=== PATIENT | male | born 1955 | race Caucasian/White ===

== ENCOUNTER 2021-06-18 21:09 | Inpatient (IN) | payer OTHER ==
[~2021-06-18] VITALS: Ht 172.7 cm; Wt 89.9 kg
[~2021-06-18 21:09] MED LIST: BUDE10.22 IH; CHOL10003 PO; DEXT15DR5 EACHEYE; DOXE50CA PO; FENT1PAT15 TP; LEVO50TA5 PO; LISI-130 PO; LORA0.5T PO; MORP15TA PO; NAPR-677 PO; NICO1PAT25 TP; QUET300T5 PO; SERT100T PO; TEST5GEL TP
--- NOTE | 2021-06-18 21:20 | ED.ADGEN ---
General Adult EDM: Chief Complaint: HIP PAIN HPI: HPI: Patient is a 65 year old male coming in via EMS after a fall and left hip pain. Patient fell approximately 7 to 8 hours prior to arrival. Patient states he tripped over his walker was unable to get off the floor, has been lying on the floor since. Patient denies other injuries, has a history of bilateral hip replacements. Patient states he could not get up but can reach a bottle from and is currently intoxicated. History of hypertension, dyslipidemia, and "heart disease". Review of Systems: Review of Systems: All other systems within normal limits except for as noted in the HPI Current Medications: Current Medications Medications (Trade) Dose Ordered Sig/Santhosh Start Time Stop Time Status Last Admin Dose Admin Fentanyl Citrate (Fentanyl 2ml Vial) 75 mcg 1X ONCE 06/18/21 22:30 06/18/21 22:31 DC Sodium Chloride 1,000 ml @ 1,000 mls/hr 1X ONCE 06/18/21 22:30 06/18/21 23:29 Allergies: Allergies: Allergies Coded Allergies Type Severity Reaction Last Updated Verified No Known Drug Allergies 06/18/21 No Physical Exam: PE: Constitutional: Well developed, well nourished, no acute distress, non-toxic appearance. [] HENT: Normocephalic, atraumatic, bilateral external ears normal, nose normal. [] Eyes: PERRLA, conjunctiva normal, no discharge. [] Neck: No rigidity, supple, no stridor. [] Cardiovascular: Regular rate and rhythm, brisk cap refill [] Lungs & Thorax: Non labored symmetric respirations, no tachypnea or respiratory distress [] Abdomen: Soft, nondistended. Skin: Warm, dry, no erythema, no rash. [] Back: Unremarkable Extremities: No deformities, range of motion grossly intact, no lower extremity edema. Left lower extremity shortened externally rotated, sensation intact, no tenderness over foot or lower leg, tenderness from left hip to mid femur. [] Neurologic: Alert and oriented X 3, no focal deficits noted. [] Psychologic: Affect normal, judgement normal, mood normal. [] Current Patient Data: Labs: Laboratory Tests Test 06/18/21 22:15 White Blood Count 10.4 x10^3/uL (4.0-11.0) Red Blood Count 3.83 x10^6/uL (4.30-5.70) L Hemoglobin 12.2 g/dL (13.0-17.5) L Hematocrit 35.4 % (39.0-53.0) L Mean Corpuscular Volume 93 fL (79-100) Mean Corpuscular Hemoglobin 32 pg (25-35) Mean Corpuscular Hemoglobin Concent 34 g/dL (31-37) Red Cell Distribution Width 15.2 % (11.5-14.5) H Platelet Count 145 x10^3/uL (140-400) Neutrophils (%) (Auto) 75 % (31-73) H Lymphocytes (%) (Auto) 17 % (24-48) L Monocytes (%) (Auto) 7 % (0-9) Eosinophils (%) (Auto) 1 % (0-3) Basophils (%) (Auto) 1 % (0-3) Neutrophils # (Auto) 7.8 x10^3/uL (1.8-7.7) H Lymphocytes # (Auto) 1.7 x10^3/uL (1.0-4.8) Monocytes # (Auto) 0.7 x10^3/uL (0.0-1.1) Eosinophils # (Auto) 0.1 x10^3/uL (0.0-0.7) Basophils # (Auto) 0.1 x10^3/uL (0.0-0.2) Sodium Level 142 mmol/L (136-145) Potassium Level 3.5 mmol/L (3.5-5.1) Chloride Level 103 mmol/L (98-107) Carbon Dioxide Level 24 mmol/L (21-32) Anion Gap 15 (6-14) H Blood Urea Nitrogen 8 mg/dL (8-26) Creatinine 0.8 mg/dL (0.7-1.3) Estimated GFR (Cockcroft-Gault) 96.4 BUN/Creatinine Ratio 10 (6-20) Glucose Level 110 mg/dL (70-99) H Lactic Acid Level 2.7 mmol/L (0.4-2.0) H Calcium Level 8.6 mg/dL (8.5-10.1) Phosphorus Level Pending Magnesium Level Pending Total Bilirubin Pending Aspartate Amino Transferase (AST) Pending Alanine Aminotransferase (ALT) Pending Alkaline Phosphatase Pending Myoglobin Pending Troponin I Quantitative < 0.017 ng/mL (0.000-0.055) Total Protein Pending Albumin Pending Albumin/Globulin Ratio Pending Ethyl Alcohol Level 218 mg/dL (0-10) H Laboratory Tests 06/18/21 22:15 Laboratory Tests 06/18/21 22:15 Vital Signs: Vital Signs Date Time Temp Pulse Resp B/P (MAP) Pulse Ox O2 Delivery O2 Flow Rate FiO2 06/18/21 21:10 98.5 107 20 153/75 95 Room Air 98.5 EKG: EKG: [] Heart Score: C/O Chest Pain: No Risk Factors: Risk Factors: DM, Current or recent (<one month) smoker, HTN, HLP, family history of CAD, obesity. Risk Scores: Score 0 - 3: 2.5% MACE over next 6 weeks - Discharge Home Score 4 - 6: 20.3% MACE over next 6 weeks - Admit for Clinical Observation Score 7 - 10: 72.7% MACE over next 6 weeks - Early Invasive Strategies Radiology/Procedures: Radiology/Procedures: [place] [address] IMAGING REPORT Signed PATIENT: YAMILET VENCES ACCOUNT: [id number] : 1955 LOCATION: ER AGE: 65 SEX: M EXAM STATUS: REG ER ORD. PHYSICIAN: LINDA SAM MD REASON: fall, broken femur PROCEDURE: CHEST AP ONLY Exam: Chest one view INDICATION: Fall, broken femur TECHNIQUE: Frontal view of the chest Comparisons: None FINDINGS: The cardiomediastinal silhouette and pulmonary vessels are within normal limits. The lung and pleural spaces are clear. IMPRESSION: No acute cardiopulmonary process. Electronically signed by: Kirk Forrest MD (06/18/2021 10:50 PM) [facility] DICTATED and SIGNED BY: KIRK FORREST MD DATE: 06/18/21 [id number] [][address] [address] IMAGING REPORT Signed PATIENT: YAMILET VENCES ACCOUNT: [id number] : 1955 LOCATION: ER AGE: 65 SEX: M EXAM STATUS: REG ER ORD. PHYSICIAN: LINDA SAM MD REASON: fall, pain PROCEDURE: FEMUR LEFT Exam: Left femur 2 views. Left pelvis INDICATION: Fall, pain TECHNIQUE: Frontal and lateral views the left femur. Frontal and frog-leg lateral views of the left hip Comparisons: None FINDINGS: Left hip arthroplasty changes noted. Diffuse osteopenia. Soft tissues are unremarkable. Obliquely oriented fracture through the femur. Fracture is shortened and placed. IMPRESSION: 1. Comminuted obliquely oriented fracture to the left femur. 2. No acute osseous abnormality at the hip. Electronically signed by: Kirk Forrest MD (06/18/2021 10:49 PM) [facility] DICTATED and SIGNED BY: KIRK FORREST MD DATE: 06/18/21 [id number] Course & Med Decision Making: Course & Med Decision Making Pertinent Labs and Imaging studies reviewed. (See chart for details) Patient's pain controlled, discussed with Dr. Rojas, will admit for oper ative fixation [] Dragon Disclaimer: Caroline Disclaimer: This electronic medical record was generated, in whole or in part, using a voice recognition dictation system. Departure Departure Impression: Primary Impression: Closed left femoral fracture Disposition: 01 HOME / SELF CARE / HOMELESS Admitting Physician: GABBY Condition: STABLE LINDA SAM MD Jun 18, 2021 21:20
[2021-06-18 22:25] LABS: BASO # 0.1 x10^3/uL (0.0-0.2); BASO % 1 % (0-3); EOS # 0.1 x10^3/uL (0.0-0.7); EOS % 1 % (0-3); HEMATOCRIT 35.4 % (39.0-53.0); HEMOGLOBIN 12.2 g/dL (13.0-17.5); LYMPH # 1.7 x10^3/uL (1.0-4.8); LYMPH % 17 % (24-48); MEAN CORPUSCULAR HEMOGLOBIN 32 pg (25-35); MEAN CORPUSCULAR HGB CONC 34 g/dL (31-37); MEAN CORPUSCULAR VOLUME 93 fL (79-100); MONO # 0.7 x10^3/uL (0.0-1.1); MONO % 7 % (0-9); NEUT # 7.8 x10^3/uL (1.8-7.7); NEUT % 75 % (31-73); PLATELET COUNT 145 x10^3/uL (140-400); RED BLOOD COUNT 3.83 x10^6/uL (4.30-5.70); RED CELL DISTRIBUTION WIDTH 15.2 % (11.5-14.5); WHITE BLOOD COUNT 10.4 x10^3/uL (4.0-11.0)
[2021-06-18] MEDS ORDERED: IV NORMAL SALINE 1000ML BAG 1,000 ML IV ONE (22:30)
[2021-06-18] MEDS ORDERED: fentaNYL PF VIAL 100 MCG/2 ML VIAL IVP ONE (22:30)
[2021-06-18 22:39] LABS: CALCIUM 8.6 mg/dL (8.5-10.1); CREATININE 0.8 mg/dL (0.7-1.3); GFR 96.4; POTASSIUM 3.5 mmol/L (3.5-5.1)
[2021-06-18 22:51] LABS: ALBUMIN 3.5 g/dL (3.4-5.0); MAGNESIUM 1.7 mg/dL (1.8-2.4); PHOSPHORUS 3.7 mg/dL (2.6-4.7); TOTAL BILIRUBIN 0.7 mg/dL (0.2-1.0); TOTAL PROTEIN 7.1 g/dL (6.4-8.2)
--- NOTE | 2021-06-18 22:51 | RAD ---
Exam: Left femur 2 views. Left pelvis INDICATION: Fall, pain TECHNIQUE: Frontal and lateral views the left femur. Frontal and frog-leg lateral views of the left h ip Comparisons: None FINDINGS: Left hip arthroplasty changes noted. Diffuse osteopenia. Soft tissues are unremarkable. Obliquely oriented fracture through the femur. Fracture is shortened and placed. IMPRESSION: 1. Comminuted obliquely oriented fracture to the left femur. 2. No acute osseous abnormality at the hip. Electronically signed by: Kirk Brooks MD (06/18/2021 10:49 PM) [facility]
--- NOTE | 2021-06-18 22:52 | RAD ---
Exam: Chest one view INDICATION: Fall, broken femur TECHNIQUE: Frontal view of the chest Comparisons: None FINDINGS: The cardiomediastinal silhouette and pulmonary vessels are within normal limits. The lung and pleural spaces are clear. IMPRESSION: No acute cardiopulmonary process. Electronically signed by: Kirk Brooks MD (06/18/2021 10:50 PM) [facility]
[2021-06-18] MEDS ORDERED: ONDANSETRON PF 4 MG/2 ML VIAL. IV PRN (23:00)
[2021-06-18] MEDS ORDERED: ACETAMINOPHEN 325 MG TABLET. PO PRN (23:00)
[2021-06-18] MEDS: IV NORMAL SALINE 1000ML BAG 1,000 ML IV SCH (23:43)
[2021-06-19] VITALS (7 sets, daily range): BP systolic 124–153; BP diastolic 64–100
[2021-06-19] MEDS: MORPHINE SULFATE 4 MG/ML INJ. IV PRN ×5 (00:51→17:07)
[2021-06-19] MEDS ORDERED: LORA-434 PO (01:34)
[2021-06-19] MEDS ORDERED: ALBU2.5V8 IH (01:35)
[2021-06-19 07:36] LABS: BASO % 1 % (0-3); EOS # 0.1 x10^3/uL (0.0-0.7); EOS % 1 % (0-3); HEMATOCRIT 34.8 % (39.0-53.0); HEMOGLOBIN 11.8 g/dL (13.0-17.5); LYMPH % 23 % (24-48); MEAN CORPUSCULAR HEMOGLOBIN 32 pg (25-35); MEAN CORPUSCULAR HGB CONC 34 g/dL (31-37); MEAN CORPUSCULAR VOLUME 94 fL (79-100); MONO # 0.6 x10^3/uL (0.0-1.1); MONO % 7 % (0-9); NEUT % 69 % (31-73); PLATELET COUNT 111 x10^3/uL (140-400); RED CELL DISTRIBUTION WIDTH 15.5 % (11.5-14.5); WHITE BLOOD COUNT 8.7 x10^3/uL (4.0-11.0)
[2021-06-19 07:53] LABS: ALBUMIN 3.1 g/dL (3.4-5.0); ALBUMIN/GLOBULIN RATIO 0.9 (1.0-1.7); CALCIUM 8.3 mg/dL (8.5-10.1); CREATININE 0.7 mg/dL (0.7-1.3); GFR 112.5; POTASSIUM 3.7 mmol/L (3.5-5.1); TOTAL BILIRUBIN 0.6 mg/dL (0.2-1.0); TOTAL PROTEIN 6.5 g/dL (6.4-8.2)
[2021-06-19] MEDS: IV NORMAL SALINE 1000ML BAG 1,000 ML IV SCH ×2 (09:53→22:49)
--- NOTE | 2021-06-19 09:59 | NUR ---
SS following for discharge planning. SS reviewed pt chart and discussed with pt RN. Pt is from home and is currently on room air. COVID19 negative. Pt has left femur fracture. Ortho consulted. PT/OT orders needed for assessment and recommendations. ETOH. PAT team referral made for assessment and recommendations. SS will continue to follow for discharge planning.
[2021-06-19] MEDS ORDERED: IV RINGERS,LACTATED 1000ML 1,000 ML IV SCH ×2 (10:15→21:15)
[2021-06-19] MEDS ORDERED: fentaNYL PF VIAL 100 MCG/2 ML VIAL IVP PRN ×4 (10:15→21:15)
[2021-06-19] MEDS ORDERED: HYDROmorphone 2 MG/ML VIAL IVP PRN (10:15)
[2021-06-19] MEDS ORDERED: PROCHLORPERAZINE 10 MG/2 ML VIAL. IVP PRN (10:15)
[2021-06-19] MEDS ORDERED: MORPHINE SULFATE 2 MG/ML INJ. IVP PRN ×2 (10:15→21:15)
[2021-06-19] MEDS ORDERED: ALBUTEROL SULFATE 2.5 MG/3 ML NEBU. NEB PRN (11:45)
[2021-06-19] MEDS ORDERED: ASPI-886 PO (11:55)
[2021-06-19] MEDS ORDERED: CARB15DR65 EACHEYE (11:55)
[2021-06-19] MEDS ORDERED: CAPS42.514 TP (11:55)
[2021-06-19] MEDS ORDERED: NAPR-514 PO (11:55)
[2021-06-19] MEDS ORDERED: OMEP20CA16 PO (11:55)
[2021-06-19] MEDS ORDERED: SERT100T PO (11:55)
[2021-06-19] MEDS ORDERED: LEVO50TA5 PO (11:55)
[2021-06-19] MEDS ORDERED: QUET300T5 PO (11:55)
[2021-06-19] MEDS ORDERED: CHOL10004 PO (11:55)
[2021-06-19] MEDS: oxyCODONE/APAP 7.5/325 1 TAB TABLET PO PRN (12:29)
--- NOTE | 2021-06-19 12:59 | HP ---
ADMIT DATE: 06/19/2021 CHIEF COMPLAINT: Fall with left femur fracture. 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 Basically, he presented with a fall. He has got a left femur fracture, has associated pain rated at 9/10, worse with moving, better with sitting still. I discussed the case with ER physician. We are admitting the patient. He is possibly going to surgery today or tomorrow. PAST MEDICAL HISTORY: Previous alcohol issues, but he states he drinks socially now; hypertension, chronic pain, arthritis, polypharmacy asthma, arthritis, osteoporosis, depression, anxiety, GERD, hypothyroidism. ALLERGIES: None. FAMILY HISTORY: Hypothyroidism. SOCIAL HISTORY: He used to play [employer] professionally for many years. He drinks socially, although used to drink heavy back in the day. MEDICATIONS: Reviewed. He is on albuterol, aspirin, naproxen, Zoloft, Seroquel, Ativan, vitamins, omeprazole, Synthroid, capsaicin and vitamin D. REVIEW OF SYSTEMS: GENERAL: No history of weight change, weakness or fevers. SKIN: No bruising, hair changes or rashes. EYES: No blurred, double or loss of vision. NOSE AND THROAT: No history of nosebleeds, hoarseness or sore throat. HEART: No history of palpitations, chest pain or shortness of breath on exertion. LUNGS: Denies cough, hemoptysis, wheezing or shortness of breath. GASTROINTESTINAL: Denies changes in appetite, nausea, vomiting, diarrhea or constipation. GENITOURINARY: No history of frequency, urgency, hesitancy or nocturia. NEUROLOGIC: Denies history of numbness, tingling, tremor or weakness. PSYCHIATRIC: No history of panic, anxiety or depression. ENDOCRINE: No history of heat or cold intolerance, polyuria or polydipsia. EXTREMITIES: He complains of left leg pain. PHYSICAL EXAMINATION: VITALS: Within normal limits and are stable. GENERAL: No apparent distress. Alert and oriented. HEENT: Normal cephalic atraumatic, external auditory canals are patent. EYES: Extraocular muscles are intact, pupils are equally round and reactive to light and accommodation. MUSCULOSKELETAL: Well developed, well nourished, good range of motion. ENDOCRINE: No thyromegaly was palpated. LYMPHATICS: No cervical chain or axillary nodes were noted. HEMATOPOIETIC: No bruising. NECK: Supple, no JVD, no thyromegaly was noted. LUNGS: Clear to auscultation in all lung neely without rhonchi or wheezing. HEART: RRR, S1, S2 present. Peripheral pulses intact, no obvious murmurs were noted. ABDOMEN: Soft, nontender. Positive bowel sounds no organomegaly, normal bowel sounds. EXTREMITIES: Left leg is extremely rotated. NEUROLOGIC: Normal speech, normal tone. A and O x 3, moves all extremities, no obvious focal deficits. PSYCHIATRIC: Normal affect, normal mood. Stable. SKIN: No ulcerations or rashes, good skin turgor, no jaundice. VASCULAR: Good capillary refill, neurovascular bundle appears to be intact. LABORATORY DATA: White count is 8, hemoglobin 11.8, platelets 111. Electrolytes are normal. Drug screen shows an alcohol level of 218. COVID testing is negative. ASSESSMENT AND PLAN: Fall with left femur fracture in a middle-aged male who states he quit drinking, but his alcohol level was high. I suspect he is still drinking. The patient has been admitted. We are giving him p.r.n. pain meds, IV fluids, home meds. DVT prophylaxis. Full code. Consult Orthopedics. We are going to Surgery either today or tomorrow. Postoperatively, he is going to need a couple of days of physical therapy here and then he will go to care home. EDWIN DR: Nay TID: [id number]
[2021-06-19] MEDS: POLYVINYL ALCOHOL 1.4% OPHTH SOLUTION 15ML BOTTLE. OU SCH ×3 (13:00→21:00)
--- NOTE | 2021-06-19 13:39 | EKG ---
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
[2021-06-19] MEDS: CAPSAICIN 0.025% TOPICAL CREAM 60GM TUBE. TP SCH ×2 (14:00→21:00)
--- NOTE | 2021-06-19 14:56 | NUR ---
assumed care at 1300.. he is going to surgery this evening for a broken femur. He fell and was on floor for a couple of hours. obtained consents for surgery, blood, hiv and anesthesia. mrsa bath given. he has glasses but did not bring. he has an upper denture. tapia to dd; patent with angy urine. wallet with his va identification. miriam npo at this time
[2021-06-19] MEDS ORDERED: PROPOFOL 10 MG/ML (20ML) VIAL. IV ONE (15:16)
[2021-06-19] MEDS ORDERED: PHENYLEPHRINE in 0.9% NACL PF 1 MG/10 ML SYRINGE. IV ONE (15:17)
[2021-06-19] MEDS ORDERED: ROCURONIUM 50 MG/5 ML VIAL. ONE (15:17)
[2021-06-19] MEDS ORDERED: DEXAMETHASONE SOD PHOS 4 MG/ML VIAL ONE (15:17)
[2021-06-19] MEDS ORDERED: LIDOCAINE 2% PF 5 ML VIAL. ONE (15:17)
[2021-06-19] MEDS ORDERED: ONDANSETRON PF 4 MG/2 ML VIAL. ONE (15:17)
[2021-06-19] MEDS ORDERED: BUPIVACAINE-EPI 0.25%-1:200000 MPF 30 ML VIAL. ONE (17:44)
[2021-06-19] MEDS ORDERED: fentaNYL PF VIAL 100 MCG/2 ML VIAL ONE ×2 (18:19→21:14)
--- NOTE | 2021-06-19 18:30 | NUR ---
transferred to surgery for an orif left femur. security here to take wallet. upper denture placed in container with name. clothes sent to surgery. will be transferring to the 414 post surgery. report called to Josemanuel
[2021-06-19] MEDS ORDERED: KETAMINE HCL IN NACL, ISO-OSM 50 MG/5 ML SYRINGE ONE (18:44)
[2021-06-19] MEDS ORDERED: TRANEXAMIC ACID in NS IVPB 50 ML ONE (19:02)
[2021-06-19] MEDS ORDERED: ALBUMIN HUMAN 5% 0 ML IV ONE (19:50)
[2021-06-19] MEDS ORDERED: ALBUMIN HUMAN 5% 500 ML IV ONE ×2 (19:56→19:57)
[2021-06-19] MEDS ORDERED: ePHEDrine PF IN SALINE 50 MG/10 ML SYRINGE. IV ONE (20:25)
[2021-06-19] MEDS ORDERED: SEVOFLURANE > 120 MINUTES. IH ONE (20:26)
[2021-06-19] MEDS ORDERED: HYDROcodone/APAP 7.5/325MG 1 TAB TABLET PO PRN (20:45)
[2021-06-19] MEDS ORDERED: ONDANSETRON PF 4 MG/2 ML VIAL. IVP PRN (20:45)
[2021-06-19] MEDS ORDERED: DEXTROSE 50% 25 GM / 50ML DISP.SYRIN. IV PRN (20:45)
[2021-06-19] MEDS ORDERED: POLYETHYLENE GLYCOL 3350 17 GM PACKET. PO PRN (20:45)
[2021-06-19] MEDS: NAPROXEN 500 MG TABLET PO SCH (21:00)
[2021-06-19] MEDS: QUEtiapine 100 MG TABLET. PO SCH (21:00)
[2021-06-19] MEDS: fentaNYL PF VIAL 100 MCG/2 ML VIAL IVP PRN ×2 (21:19→21:27)
[2021-06-19] MEDS ORDERED: HYDROmorphone 2 MG/ML VIAL ONE (21:42)
[2021-06-19] MEDS: HYDROmorphone 2 MG/ML VIAL IVP PRN ×3 (21:50→22:33)
--- NOTE | 2021-06-19 22:13 | RAD ---
Left femur AP and lateral views: Reason for examination: Postop for fracture. There has been open reduction and internal fixation of the oblique fracture of the distal femur with a plate and multiple screws present laterally. There is good anatomic alignment following the procedu re. Left total hip prosthesis is present. There is some soft tissue edema and air present laterally w hich is probably related to the surgery. Multiple surgical alba are present posterior laterally in the thigh. IMPRESSION: Postop open reduction and internal fixation of the oblique fracture of the distal femoral shaft with good anatomic alignment. Electronically signed by: Hannah Nixon MD (06/19/2021 10:11 PM) [facility]
[2021-06-20] VITALS (8 sets, daily range): BP systolic 96–144; BP diastolic 38–83
[2021-06-20] MEDS: oxyCODONE/APAP 7.5/325 1 TAB TABLET PO PRN ×2 (01:04→05:38)
[2021-06-20] MEDS: HYDROmorphone 2 MG/ML VIAL IVP PRN (01:58)
[2021-06-20] MEDS: fentaNYL PF VIAL 100 MCG/2 ML VIAL IVP PRN (01:59)
[2021-06-20] MEDS: LEVOTHYROXINE 50 MCG TABLET PO SCH (05:36)
[2021-06-20] MEDS ORDERED: MAGNESIUM HYDROXIDE 2,400 MG/30 ML ORAL.SUSP. PO PRN (06:00)
[2021-06-20] MEDS: MORPHINE SULFATE 4 MG/ML INJ. IVP PRN ×2 (06:22→16:34)
[2021-06-20] MEDS: NAPROXEN 500 MG TABLET PO SCH ×2 (08:17→19:56)
[2021-06-20] MEDS: THIAMINE 100 MG TABLET. PO SCH (08:17)
[2021-06-20] MEDS: PANTOPRAZOLE 40 MG TABLET.DR. PO SCH (08:18)
[2021-06-20] MEDS: ASPIRIN ENTERIC COATED 81 MG TABLET.DR. PO SCH (08:18)
[2021-06-20] MEDS: CHOLECALCIFEROL (VITAMIN D3) 1,000 UNIT TABLET PO SCH (08:18)
[2021-06-20] MEDS: SENNOSIDES/DOCUSATE 8.6/50MG TABLET. PO SCH (08:18)
[2021-06-20] MEDS: SERTRALINE 50 MG TABLET. PO SCH (08:18)
[2021-06-20] MEDS: oxyCODONE IR 5 MG TABLET PO PRN ×3 (08:19→14:18)
[2021-06-20] MEDS: FOLIC ACID 1 MG TABLET. PO SCH (08:19)
[2021-06-20] MEDS: CAPSAICIN 0.025% TOPICAL CREAM 60GM TUBE. TP SCH ×3 (09:00→19:56)
[2021-06-20] MEDS: HYDROcodone/APAP 10/325 1 TAB TABLET PO PRN ×2 (10:53→16:29)
--- NOTE | 2021-06-20 11:12 | PDOC ---
[facility] PROGRESS NOTE Date of Service DOS: DATE: 06/20/21 TIME: 11:07 Chief Complaint Chief Complaint Fall with left femur fracture status post left ORIF with orthopedics 06/19/2021 EtOH use Lactic acidemia Moderate protein malnutrition Obesity class I Continue with IV n.p.o. 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 Basically, he presented with a fall. He has got a left femur fracture, has associated pain rated at 9/10, worse with moving, better with sitting still. I discussed the case with ER physician. We are admitting the patient. Vitals/I&O Vitals/I&O: Vital Signs Date Time Temp Pulse Resp B/P (MAP) Pulse Ox O2 Delivery O2 Flow Rate FiO2 06/20/21 11:00 98.0 113 16 144/73 (96) 97 Room Air 98.0 06/20/21 01:04 5.0 I & O 06/19/21 06/19/21 06/20/21 14:59 22:59 06:59 Intake Total 1100 ml 2600 ml 480 ml Output Total 700 ml Balance 1100 ml 1900 ml 480 ml Physical Exam General: Alert, Oriented X3, Cooperative, mild distress Heart: No murmurs Lungs: Clear Abdomen: Normal bowel sounds Extremities: No clubbing, No cyanosis Skin: No rashes, Other (Surgical incision clear dry and intact) Assessment and Plan Assessmemt and Plan Problems Medical Problems: (1) Closed left femoral fracture Status: Acute Comment Review of Relevant I have reviewed the following items michael (where applicable) has been applied. Medications: Current Medications Medications (Trade) Dose Ordered Sig/Santhosh Route PRN Reason Start Time Stop Time Status Last Admin Dose Admin Aspirin (Ecotrin) 81 mg DAILY PO 06/20/21 09:00 06/20/21 08:18 Vitamin D (Vitamin D3) 1,000 unit DAILY PO 06/20/21 09:00 06/20/21 08:18 Levothyroxine Sodium (Synthroid) 50 mcg DAILY06 PO 06/20/21 06:00 06/20/21 05:36 Lorazepam (Ativan) 1 mg BID PO 06/19/21 21:00 06/20/21 08:18 Naproxen (Naprosyn) 500 mg BID PO 06/19/21 21:00 06/20/21 08:17 Pantoprazole Sodium (Protonix) 40 mg DAILYAC PO 06/20/21 07:30 06/20/21 08:18 Sertraline HCl (Zoloft) 200 mg DAILY PO 06/20/21 09:00 06/20/21 08:18 Oxycodone/ Acetaminophen (Percocet 7.5/ 325) 1 tab PRN Q4HRS PRN PO SEVERE PAIN, 2ND CHOICE 06/19/21 12:15 06/20/21 05:38 Lorazepam (Ativan) 1 mg 1X ONCE PO 06/19/21 12:30 06/19/21 12:31 DC 06/19/21 12:28 Thiamine Mononitrate (Vitamin B-1) 100 mg DAILY PO 06/20/21 09:00 06/20/21 08:17 Folic Acid (Folic Acid) 1 mg DAILY PO 06/20/21 09:00 06/20/21 08:19 Oxycodone HCl (Roxicodone) 5 mg PRN Q3HRS PRN PO MODERATE PAIN 4-6 06/19/21 20:45 06/20/21 08:19 Senna/Docusate Sodium (Senna Plus) 1 tab DAILY PO 06/20/21 09:00 06/20/21 08:18 Ondansetron HCl (Zofran) 4 mg PRN Q4HRS PRN IVP NAUSEA/VOMITING 06/19/21 20:45 06/20/21 06:17 Morphine Sulfate (Morphine Sulfate) 4 mg PRN Q2HR PRN IVP SEVERE PAIN 7-10 06/19/21 20:45 06/20/21 06:22 Cefazolin Sodium/ Dextrose 50 ml @ 100 mls/hr Q6H IV 06/20/21 00:00 06/20/21 12:29 06/20/21 05:36 Fentanyl Citrate (Fentanyl 2ml Vial) 50 mcg PRN Q5MIN PRN IVP MODERATE PAIN 4-6 06/19/21 21:15 06/20/21 03:00 DC 06/19/21 21:27 Hydromorphone HCl (Dilaudid) 0.5 mg PRN Q10MIN PRN IVP SEVERE PAIN 7-10, 2nd CHOICE 06/19/21 21:15 06/20/21 03:00 DC 06/19/21 22:33 Acetaminophen/ Hydrocodone Bitart (Lortab ) 1 tab PRN Q6HRS PRN PO SEVERE PAIN - 1ST CHOICE 06/20/21 10:00 06/20/21 10:53 Justifications for Admission Other Justification LORENA DOUGHERTY MD Jun 20, 2021 11:11
--- NOTE | 2021-06-20 11:28 | NUR ---
SW following. Discussed with RN, pt from home, room air, NPO, COVID-19 negative. Parker (AUBREY) saw pt yesterday, pt has a few glasses of rum a day, does not feel like he needs any help, denies any mental health needs. PT/OT ordered. Pt had surgery 06/19/21. SW will continue to follow.
[2021-06-20] MEDS: POLYVINYL ALCOHOL 1.4% OPHTH SOLUTION 15ML BOTTLE. OU SCH ×4 (12:51→19:59)
--- NOTE | 2021-06-20 15:38 | PDOC2 ---
CONSULT Date of Consult Date of Consult DATE: 06/19/21 TIME: 10:34 Reason for Consult Reason for Consult: Left femur periprosthetic fracture. Identification/Chief Complaint Chief Complaint Left femur periprosthetic fracture after ground-level fall. Source Source: Patient History of Present Illness Reason for Visit: Patient is a 65-year-old male, admitted through the emergency department after ground-level fall with left leg pain and deformity. Patient tripped while at home and was unable to bear weight or ambulate. He was unable to reach the telephone as well and laid on the floor for approximately 6 hours. It was then brought here for further follow-up. He denies any numbness or tingling currently. Admits to significant pain in his left leg with inability to move. He underwent total hip arthroplasty in the past without complication. Current Problem List Problem List Problems Medical Problems: (1) Closed left femoral fracture Status: Acute Current Medications Current Medications Current Medications Sodium Chloride 1,000 ml @ 1,000 mls/hr 1X ONCE IV Last administered on 06/18/21at 21:30; Start 06/18/21 at 22:30; Stop 06/18/21 at 23:29; Status DC Fentanyl Citrate (Fentanyl 2ml Vial) 75 mcg 1X ONCE IVP Last administered on 06/18/21at 23:46; Start 06/18/21 at 22:30; Stop 06/18/21 at 22:31; Status DC Ondansetron HCl (Zofran) 4 mg PRN Q8HRS PRN IV NAUSEA/VOMITING 1ST CHOICE Last administered on 06/19/21at 00:51; Start 06/18/21 at 23:00; Stop 06/19/21 at 21:00; Status DC Morphine Sulfate (Morphine Sulfate) 4 mg PRN Q2HR PRN IV SEVERE PAIN 7-10 Last administered on 06/19/21at 17:07; Start 06/18/21 at 23:00; Stop 06/19/21 at 21:03; Status DC Sodium Chloride 1,000 ml @ 75 mls/hr [id number] IV Last administered on 06/19/21at 22:49; Start 06/18/21 at 23:30; Stop 06/19/21 at 23:29; Status DC Acetaminophen (Tylenol) 650 mg PRN Q4HRS PRN PO FEVER > 100.3'F; Start 06/18/21 at 23:00; Stop 06/19/21 at 22:59; Status DC Fentanyl Citrate (Fentanyl 2ml Vial) 25 mcg PRN Q5MIN PRN IVP MILD PAIN 1-3; Start 06/19/21 at 10:15; Stop 06/19/21 at 19:00; Status DC Fentanyl Citrate (Fentanyl 2ml Vial) 50 mcg PRN Q5MIN PRN IVP MODERATE PAIN 4- 6; Start 06/19/21 at 10:15; Stop 06/19/21 at 19:00; Status DC Morphine Sulfate (Morphine Sulfate) 1 mg PRN Q10MIN PRN IVP SEVERE PAIN 7-10; Start 06/19/21 at 10:15; Stop 06/19/21 at 19:00; Status DC Ringer's Solution 1,000 ml @ 30 mls/hr Q24H IV ; Start 06/19/21 at 10:15; Stop 06/19/21 at 22:14; Status DC Hydromorphone HCl (Dilaudid) 0.5 mg PRN Q10MIN PRN IVP SEVERE PAIN 7-10, 2nd CHOICE; Start 06/19/21 at 10:15; Stop 06/19/21 at 19:00; Status DC Prochlorperazine Edisylate (Compazine) 5 mg PACU PRN PRN IVP NAUSEA, MRX1; Start 06/19/21 at 10:15; Stop 06/19/21 at 19:00; Status DC Aspirin (Ecotrin) 81 mg DAILY PO Last administered on 06/20/21at 08:18; Start 06/20/21 at 09:00 Vitamin D (Vitamin D3) 1,000 unit DAILY PO Last administered on 06/20/21at 08:18; Start 06/20/21 at 09:00 Levothyroxine Sodium (Synthroid) 50 mcg DAILY06 PO Last administered on 06/20/21at 05:36; Start 06/20/21 at 06:00 Lorazepam (Ativan) 1 mg BID PO Last administered on 06/20/21at 08:18; Start 06/19/21 at 21:00 Naproxen (Naprosyn) 500 mg BID PO Last administered on 06/20/21at 08:17; Start 06/19/21 at 21:00 Capsaicin (Zostrix) 1 enrrique TID TP ; Start 06/19/21 at 14:00 Glycerin/ Hypromellose/ Polyethylene (Artificial Tears) 1 drop QID OU Last administered on 06/20/21at 12:51; Start 06/19/21 at 13:00 Pantoprazole Sodium (Protonix) 40 mg DAILYAC PO Last administered on 06/20/21at 08:18; Start 06/20/21 at 07:30 Quetiapine Fumarate (SEROquel) 150 mg HS PO ; Start 06/19/21 at 21:00 Sertraline HCl (Zoloft) 200 mg DAILY PO Last administered on 06/20/21at 08:18; Start 06/20/21 at 09:00 Albuterol Sulfate (Ventolin Neb Soln) 2.5 mg PRN QID PRN NEB WHEEZING; Start 06/19/21 at 11:45 Oxycodone/ Acetaminophen (Percocet 7.5/ 325) 1 tab PRN Q4HRS PRN PO SEVERE PAIN, 2ND CHOICE Last administered on 06/20/21at 05:38; Start 06/19/21 at 12:15 Lorazepam (Ativan) 1 mg 1X ONCE PO Last administered on 06/19/21at 12:28; Start 06/19/21 at 12:30; Stop 06/19/21 at 12:31; Status DC Thiamine Mononitrate (Vitamin B-1) 100 mg DAILY PO Last administered on 06/20/21at 08:17; Start 06/20/21 at 09:00 Folic Acid (Folic Acid) 1 mg DAILY PO Last administered on 06/20/21at 08:19; Start 06/20/21 at 09:00 Propofol (Diprivan) 200 mg STK-MED ONCE IV ; Start 06/19/21 at 15:16; Stop 06/19/21 at 15:17; Status DC Lidocaine HCl (Lidocaine Pf 2% Vial) 5 ml STK-MED ONCE .ROUTE ; Start 06/19/21 a t 15:17; Stop 06/19/21 at 15:17; Status DC Dexamethasone Sodium Phosphate (Decadron) 4 mg STK-MED ONCE .ROUTE ; Start 06/19/21 at 15:17; Stop 06/19/21 at 15:17; Status DC Ondansetron HCl (Zofran) 4 mg STK-MED ONCE .ROUTE ; Start 06/19/21 at 15:17; Stop 06/19/21 at 15:17; Status DC Phenylephrine HCl (PHENYLEPHRINE in 0.9% NACL PF) 1 mg STK-MED ONCE IV ; Start 06/19/21 at 15:17; Stop 06/19/21 at 15:17; Status DC Rocuronium [place] (Zemuron) 50 mg STK-MED ONCE .ROUTE ; Start 06/19/21 at 15:17; Stop 06/19/21 at 15:17; Status DC Bupivacaine HCl/ Epinephrine Bitart (Sensorcaine-Epi 0.25%-1:[id number] Mpf) 30 ml STK-MED ONCE .ROUTE ; Start 06/19/21 at 17:44; Stop 06/19/21 at 17:44; Status DC Fentanyl Citrate (Fentanyl 2ml Vial) 100 mcg STK-MED ONCE .ROUTE ; Start 06/19/21 at 18:19; Stop 06/19/21 at 18:19; Status DC Cefazolin Sodium/ Dextrose 50 ml @ As Directed STK-MED ONCE IV ; Start 06/19/21 at 18:21; Stop 06/19/21 at 18:21; Status DC Ketamine HCl (Ketamine) 50 mg STK-MED ONCE .ROUTE ; Start 06/19/21 at 18:44; Stop 06/19/21 at 18:45; Status DC Tranexamic Acid 50 ml @ As Directed STK-MED ONCE .ROUTE ; Start 06/19/21 at 19:02; Stop 06/19/21 at 19:03; Status DC Albumin Human 0 ml @ As Directed STK-MED ONCE IV ; Start 06/19/21 at 19:50; Stop 06/19/21 at 19:50; Status DC Albumin Human 500 ml @ As Directed STK-MED ONCE IV ; Start 06/19/21 at 19:56; Stop 06/19/21 at 19:56; Status DC Albumin Human 500 ml @ As Directed STK-MED ONCE IV ; Start 06/19/21 at 19:57; Stop 06/19/21 at 19:57; Status DC Ephedrine Sulfate (ePHEDrine PF IN SALINE SYRINGE) 50 mg STK-MED ONCE IV ; Start 06/19/21 at 20:25; Stop 06/19/21 at 20:25; Status DC Sevoflurane (Ultane) 90 ml STK-MED ONCE IH ; Start 06/19/21 at 20:26; Stop 06/19/21 at 20:26; Status DC Oxycodone HCl (Roxicodone) 5 mg PRN Q3HRS PRN PO MODERATE PAIN 4-6 Last administered on 06/20/21at 14:18; Start 06/19/21 at 20:45 Fentanyl Citrate (Fentanyl 2ml Vial) 25 mcg PRN Q1HR PRN IVP SEVERE PAIN 7-10; Start 06/19/21 at 20:45 Senna/Docusate Sodium (Senna Plus) 1 tab DAILY PO Last administered on 06/20/21at 08:18; Start 06/20/21 at 09:00 Polyethylene Glycol (miraLAX PACKET) 17 gm PRN DAILY PRN PO CONSTIPATION; Start 06/19/21 at 20:45 Ondansetron HCl (Zofran) 4 mg PRN Q4HRS PRN IVP NAUSEA/VOMITING Last administered on 06/20/21at 06:17; Start 06/19/21 at 20:45 Enoxaparin Sodium (Lovenox 40mg Syringe) 40 mg DAILY SQ ; Start 06/21/21 at 09:00 Magnesium Hydroxide (Milk Of Magnesia) 2,400 mg 1X PRN PRN PO CONSTIPATION; Start 06/20/21 at 06:00; Stop 06/21/21 at 05:59 Bisacodyl (Dulcolax Supp) 10 mg 1X PRN PRN [place] CONSTIPATION; Start 06/20/21 at 16:00; Stop 06/21/21 at 15:59 Acetaminophen/ Hydrocodone Bitart (Lortab 7.5/325) 1 tab PRN Q4HRS PRN PO MODERATE PAIN- 1ST CHOICE; Start 06/19/21 at 20:45 Morphine Sulfate (Morphine Sulfate) 4 mg PRN Q2HR PRN IVP SEVERE PAIN 7-10 Last administered on 06/20/21at 06:22; Start 06/19/21 at 20:45 Dextrose (Dextrose 50%-Water Syringe) 12.5 gm PRN Q15MIN PRN IV SEE COMMENTS; Start 06/19/21 at 20:45 Cefazolin Sodium/ Dextrose 50 ml @ 100 mls/hr Q6H IV Last administered on 06/20/21at 12:50; Start 06/20/21 at 00:00; Stop 06/20/21 at 12:29; Status DC Fentanyl Citrate (Fentanyl 2ml Vial) 25 mcg PRN Q5MIN PRN IVP MILD PAIN 1-3; Start 06/19/21 at 21:15; Stop 06/20/21 at 03:00; Status DC Fentanyl Citrate (Fentanyl 2ml Vial) 50 mcg PRN Q5MIN PRN IVP MODERATE PAIN 4-6 Last administered on 06/19/21at 21:27; Start 06/19/21 at 21:15; Stop 06/20/21 at 03:00; Status DC Morphine Sulfate (Morphine Sulfate) 1 mg PRN Q10MIN PRN IVP SEVERE PAIN 7-10; Start 06/19/21 at 21:15; Stop 06/20/21 at 03:00; Status DC Ringer's Solution 1,000 ml @ 30 mls/hr Q24H IV ; Start 06/19/21 at 21:15; Stop 06/20/21 at 03:00; Status DC Hydromorphone HCl (Dilaudid) 0.5 mg PRN Q10MIN PRN IVP SEVERE PAIN 7-10, 2nd CHOICE Last administered on 06/19/21at 22:33; Start 06/19/21 at 21:15; Stop 06/20/21 at 03:00; Status DC Fentanyl Citrate (Fentanyl 2ml Vial) 100 mcg STK-MED ONCE .ROUTE ; Start 06/19/21 at 21:14; Stop 06/19/21 at 21:14; Status DC Hydromorphone HCl (Dilaudid) 2 mg STK-MED ONCE .ROUTE ; Start 06/19/21 at 21:42; Stop 06/19/21 at 21:43; Status DC Acetaminophen/ Hydrocodone Bitart (Lortab 10/325) 1 tab PRN Q6HRS PRN PO SEVERE PAIN - 1ST CHOICE Last administered on 06/20/21at 10:53; Start 06/20/21 at 10:00 Active Scripts Active Reported Levothyroxine Sodium 50 Mcg Tablet 50 Mcg PO DAILYAC Aspirin Ec (Aspirin) 81 Mg Tablet.dr 81 Mg PO DAILY Zoloft (Sertraline Hcl) 100 Mg Tablet 250 Mg PO DAILY Seroquel (Quetiapine Fumarate) 300 Mg Tablet 150 Mg PO HS Vitamin D3 (Vitamin D) 25 Mcg Tablet 25 Mcg PO DAILY 1,000 UNITS = 25 MCG Thera Tears (Carboxymethylcellulose Sodium) 15 Ml Drops 1 Drop EACHEYE QID Omeprazole 20 Mg Capsule.dr 20 Mg PO DAILY Naproxen 500 Mg Tablet 500 Mg PO BID 30 Days Capsaicin 42.5 Gm Cream..g. 1 Enrrique TP TID Proair Hfa Inhaler (Albuterol Sulfate) 8.5 Gm Hfa.aer.ad 1 Puff IH PRN Q4-6HRS PRN 21 Days Ativan (Lorazepam) 1 Mg Tablet 1 Mg PO BID Allergies Allergies: Coded Allergies: No Known Drug Allergies (Unverified , 06/18/21) ROS Musculoskeletal: Yes Gait Disturbance, Yes Joint Pain, Yes Joint Swelling, Yes Muscle Pain, Yes Muscular Weakness Physical Exam General: Alert, Cooperative, mild distress MUSCULOSKELETAL: Other (Deformity of left lower leg. ROM severly limited secondary to pain. Distal NV exam intact.) Vitals VITALS Vital Signs Date Time Temp Pulse Resp B/P (MAP) Pulse Ox O2 Delivery O2 Flow Rate FiO2 06/20/21 14:18 Room Air 06/20/21 11:00 98.0 113 16 144/73 (96) 97 98.0 06/20/21 01:04 5.0 Labs Labs Laboratory Tests Test 06/18/21 22:15 06/19/21 00:24 06/19/21 01:40 06/19/21 07:15 White Blood Count 10.4 x10^3/uL (4.0-11.0) 8.7 x10^3/uL (4.0-11.0) Red Blood Count 3.83 x10^6/uL (4.30-5.70) 3.70 x10^6/uL (4.30-5.70) Hemoglobin 12.2 g/dL (13.0-17.5) 11.8 g/dL (13.0-17.5) Hematocrit 35.4 % (39.0-53.0) 34.8 % (39.0-53.0) Mean Corpuscular Volume 93 fL (79-100) 94 fL (79-100) Mean Corpuscular Hemoglobin 32 pg (25-35) 32 pg (25-35) Mean Corpuscular Hemoglobin Concent 34 g/dL (31-37) 34 g/dL (31-37) Red Cell Distribution Width 15.2 % (11.5-14.5) 15.5 % (11.5-14.5) Platelet Count 145 x10^3/uL (140-400) 111 x10^3/uL (140-400) Neutrophils (%) (Auto) 75 % (31-73) 69 % (31-73) Lymphocytes (%) (Auto) 17 % (24-48) 23 % (24-48) Monocytes (%) (Auto) 7 % (0-9) 7 % (0-9) Eosinophils (%) (Auto) 1 % (0-3) 1 % (0-3) Basophils (%) (Auto) 1 % (0-3) 1 % (0-3) Neutrophils # (Auto) 7.8 x10^3/uL (1.8-7.7) 6.0 x10^3/uL (1.8-7.7) Lymphocytes # (Auto) 1.7 x10^3/uL (1.0-4.8) 2.0 x10^3/uL (1.0-4.8) Monocytes # (Auto) 0.7 x10^3/uL (0.0-1.1) 0.6 x10^3/uL (0.0-1.1) Eosinophils # (Auto) 0.1 x10^3/uL (0.0-0.7) 0.1 x10^3/uL (0.0-0.7) Basophils # (Auto) 0.1 x10^3/uL (0.0-0.2) 0.0 x10^3/uL (0.0-0.2) Sodium Level 142 mmol/L (136-145) Potassium Level 3.5 mmol/L (3.5-5.1) Chloride Level 103 mmol/L (98-107) Carbon Dioxide Level 24 mmol/L (21-32) Anion Gap 15 (6-14) Blood Urea Nitrogen 8 mg/dL (8-26) Creatinine 0.8 mg/dL (0.7-1.3) Estimated GFR (Cockcroft-Gault) 96.4 BUN/Creatinine Ratio 10 (6-20) Glucose Level 110 mg/dL (70-99) Lactic Acid Level 2.7 mmol/L (0.4-2.0) 3.6 mmol/L (0.4-2.0) Calcium Level 8.6 mg/dL (8.5-10.1) Phosphorus Level 3.7 mg/dL (2.6-4.7) Magnesium Level 1.7 mg/dL (1.8-2.4) Total Bilirubin 0.7 mg/dL (0.2-1.0) Aspartate Amino Transf (AST/SGOT) 101 U/L (15-37) Alanine Aminotransferase (ALT/SGPT) 60 U/L (16-63) Alkaline Phosphatase 173 U/L (46-116) Myoglobin 211 ng/mL (16-96) Troponin I Quantitative < 0.017 ng/mL (0.000-0.055) XE-Shq-R-Type Natriuretic Peptide 201 pg/mL (0-124) Total Protein 7.1 g/dL (6.4-8.2) Albumin 3.5 g/dL (3.4-5.0) Albumin/Globulin Ratio 1.0 (1.0-1.7) Ethyl Alcohol Level 218 mg/dL (0-10) SARS-CoV-2 RNA (JAYJAY) Negative (Negative) Test 06/19/21 07:20 Sodium Level 139 mmol/L (136-145) Potassium Level 3.7 mmol/L (3.5-5.1) Chloride Level 102 mmol/L (98-107) Carbon Dioxide Level 32 mmol/L (21-32) Anion Gap 5 (6-14) Blood Urea Nitrogen 8 mg/dL (8-26) Creatinine 0.7 mg/dL (0.7-1.3) Estimated GFR (Cockcroft-Gault) 112.5 BUN/Creatinine Ratio 11 (6-20) Glucose Level 104 mg/dL (70-99) Calcium Level 8.3 mg/dL (8.5-10.1) Total Bilirubin 0.6 mg/dL (0.2-1.0) Aspartate Amino Transf (AST/SGOT) 91 U/L (15-37) Alanine Aminotransferase (ALT/SGPT) 51 U/L (16-63) Alkaline Phosphatase 161 U/L (46-116) Total Protein 6.5 g/dL (6.4-8.2) Albumin 3.1 g/dL (3.4-5.0) Albumin/Globulin Ratio 0.9 (1.0-1.7) Images Images Radiographs of the left femur reveal a long oblique fracture of the midshaft of the distal femur with extension down into the metadiaphyseal supracondylar region. Cemented total hip arthroplasty in place proximally. Assessment/Plan Assessment/Plan 65-year-old male with left femur periprosthetic fracture status post ground- level fall. -Discussed radiographs and treatment options with the patient. We reviewed the risk, benefits, and alternatives to surgery. These risks include but not limited to pain, scar, infection, bleeding, damage to neurovascular structures, arthrofibrosis, thromboembolism, and incomplete relief of symptoms. He demonstrates understanding and would like to proceed with recommended surgery for left femur fracture open reduction internal fixation. -N.p.o. for planned surgery later today. -Consent obtained and antibiotics on-call to the OR. LESLIE LOPEZ DO Jun 20, 2021 15:38
--- NOTE | 2021-06-20 15:44 | PDOC4 ---
OPERATIVE NOTE: Date of surgery: 06/19/2021 Preoperative diagnosis: Displaced left femur periprosthetic fracture. Postoperative diagnosis: Same Surgical procedure: Left femur periprosthetic fracture open reduction internal fixation. Surgeon: Ryan Lopez DO/JEFF Anesthesia: General Antibiotics: Ancef Orthopedic implants: [employer] 12 hole large fragment plate Operative indications: Mr. Tidwell is a 65-year-old male admitted through emergency department with above-mentioned diagnosis. Radiographs reveal a long oblique displaced fracture. We discussed the indications, risk, benefits, and alternatives to surgery. He demonstrated understanding wish to proceed. Operative technique: The patient was met in the preoperative holding area and again the risk, benefits, and alternatives to surgical intervention were reviewed with the patient. He again demonstrated understanding wish to proceed with surgery. Surgical consent was checked for correctness. The operative extremity was then initialed to verify correct surgical site with patient. Patient was then taken back to operative Jesse. 5. He was administered a general anesthetic by department of anesthesiology and given 2 g of Ancef preoperatively. A timeout protocol was performed to verify correct surgical site and procedure. All team members were in agreement. Patient was then transferred to the surgical table in the left lower extremity was sterilely prepped and draped in the usual fashion. Surgery began by marking our planned surgical incision over the direct lateral aspect of the thigh. A 10 blade scalpel was used to incise the skin and subcut icular tissue. Bovie electrocautery was used control hemostasis. Self- retaining tractors were placed within the wound. Bovie electrocautery was used to dissect through the iliotibial band. The vastus lateralis muscle was then identified. The muscle was then split utilizing Bovie electrocautery. The fracture site was identified. Provisional fracture hematoma was debrided util izing bulb irrigation, [place] elevator, and suction. Manual reduction techniques were then performed and 2 large serrated bone forceps were placed holding anatomic fracture reduction. This fracture was then provisionally fixated utilizing 3.5 mm interfragmentary screws. Next, a 4.5 mm large fragment plate was selected and placed onto the lateral aspect of the distal femur. It was contoured to fit the distal femur appropriately. The plate was initially fixated with 4.5 mm cortical screws. The plate was then fixated distally with 4.5 mm locking screws. Unicortical locking screws as well as a cable system were used near the distal extent of the cemented total hip arthroplasty. Postsurgical fixation reveal anatomic fracture reduction with good hardware placement. The wound was thoroughly irrigated with 2 L of normal saline. The deep tissues and iliotibial band were closed with a #1 Vicryl in [id number] fashion. Subcuticular tissues were then closed with 2-0 Vicryl in subcuticular fashion, the skin was then closed with alba. Sterile dressings were then applied. The patient was then awakened from general anesthesia and transferred to the postoperative gurney in stable condition. Complications: None Specimens of the pathology: None Estimated blood loss: 400 cc Condition: Stable Disposition: PACU, medical surgical floor. RYAN LOPEZ DO Jun 20, 2021 15:44
--- NOTE | 2021-06-20 15:54 | PDOC ---
PROGRESS NOTES Date of Service DATE: 06/20/21 TIME: 15:51 Subjective Subjective Problems overnight: Patient did well overnight. Having some mild issues with pain control. Receiving oral and IV medication. Sitting in the chair comfortably now. Worked with therapy today. Objective Vital Signs Vital Signs Date Time Temp Pulse Resp B/P (MAP) Pulse Ox O2 Delivery O2 Flow Rate FiO2 06/20/21 15:00 98.0 110 16 104/38 (60) 96 Room Air 98.0 06/20/21 01:04 5.0 Physical Exam Left lower extremity dressing clean and dry. Minimal swelling or ecchymosis. Distal neurovascular examination is intact. Labs Laboratory Tests Test 06/18/21 22:15 06/19/21 00:24 06/19/21 01:40 06/19/21 07:15 White Blood Count 10.4 x10^3/uL (4.0-11.0) 8.7 x10^3/uL (4.0-11.0) Red Blood Count 3.83 x10^6/uL (4.30-5.70) 3.70 x10^6/uL (4.30-5.70) Hemoglobin 12.2 g/dL (13.0-17.5) 11.8 g/dL (13.0-17.5) Hematocrit 35.4 % (39.0-53.0) 34.8 % (39.0-53.0) Mean Corpuscular Volume 93 fL (79-100) 94 fL (79-100) Mean Corpuscular Hemoglobin 32 pg (25-35) 32 pg (25-35) Mean Corpuscular Hemoglobin Concent 34 g/dL (31-37) 34 g/dL (31-37) Red Cell Distribution Width 15.2 % (11.5-14.5) 15.5 % (11.5-14.5) Platelet Count 145 x10^3/uL (140-400) 111 x10^3/uL (140-400) Neutrophils (%) (Auto) 75 % (31-73) 69 % (31-73) Lymphocytes (%) (Auto) 17 % (24-48) 23 % (24-48) Monocytes (%) (Auto) 7 % (0-9) 7 % (0-9) Eosinophils (%) (Auto) 1 % (0-3) 1 % (0-3) Basophils (%) (Auto) 1 % (0-3) 1 % (0-3) Neutrophils # (Auto) 7.8 x10^3/uL (1.8-7.7) 6.0 x10^3/uL (1.8-7.7) Lymphocytes # (Auto) 1.7 x10^3/uL (1.0-4.8) 2.0 x10^3/uL (1.0-4.8) Monocytes # (Auto) 0.7 x10^3/uL (0.0-1.1) 0.6 x10^3/uL (0.0-1.1) Eosinophils # (Auto) 0.1 x10^3/uL (0.0-0.7) 0.1 x10^3/uL (0.0-0.7) Basophils # (Auto) 0.1 x10^3/uL (0.0-0.2) 0.0 x10^3/uL (0.0-0.2) Sodium Level 142 mmol/L (136-145) Potassium Level 3.5 mmol/L (3.5-5.1) Chloride Level 103 mmol/L (98-107) Carbon Dioxide Level 24 mmol/L (21-32) Anion Gap 15 (6-14) Blood Urea Nitrogen 8 mg/dL (8-26) Creatinine 0.8 mg/dL (0.7-1.3) Estimated GFR (Cockcroft-Gault) 96.4 BUN/Creatinine Ratio 10 (6-20) Glucose Level 110 mg/dL (70-99) Lactic Acid Level 2.7 mmol/L (0.4-2.0) 3.6 mmol/L (0.4-2.0) Calcium Level 8.6 mg/dL (8.5-10.1) Phosphorus Level 3.7 mg/dL (2.6-4.7) Magnesium Level 1.7 mg/dL (1.8-2.4) Total Bilirubin 0.7 mg/dL (0.2-1.0) Aspartate Amino Transf (AST/SGOT) 101 U/L (15-37) Alanine Aminotransferase (ALT/SGPT) 60 U/L (16-63) Alkaline Phosphatase 173 U/L (46-116) Myoglobin 211 ng/mL (16-96) Troponin I Quantitative < 0.017 ng/mL (0.000-0.055) SV-Lqy-P-Type Natriuretic Peptide 201 pg/mL (0-124) Total Protein 7.1 g/dL (6.4-8.2) Albumin 3.5 g/dL (3.4-5.0) Albumin/Globulin Ratio 1.0 (1.0-1.7) Ethyl Alcohol Level 218 mg/dL (0-10) SARS-CoV-2 RNA (JAYJAY) Negative (Negative) Test 06/19/21 07:20 Sodium Level 139 mmol/L (136-145) Potassium Level 3.7 mmol/L (3.5-5.1) Chloride Level 102 mmol/L (98-107) Carbon Dioxide Level 32 mmol/L (21-32) Anion Gap 5 (6-14) Blood Urea Nitrogen 8 mg/dL (8-26) Creatinine 0.7 mg/dL (0.7-1.3) Estimated GFR (Cockcroft-Gault) 112.5 BUN/Creatinine Ratio 11 (6-20) Glucose Level 104 mg/dL (70-99) Calcium Level 8.3 mg/dL (8.5-10.1) Total Bilirubin 0.6 mg/dL (0.2-1.0) Aspartate Amino Transf (AST/SGOT) 91 U/L (15-37) Alanine Aminotransferase (ALT/SGPT) 51 U/L (16-63) Alkaline Phosphatase 161 U/L (46-116) Total Protein 6.5 g/dL (6.4-8.2) Albumin 3.1 g/dL (3.4-5.0) Albumin/Globulin Ratio 0.9 (1.0-1.7) Imaging AP and lateral radiographs of the left femur reveal intact hardware with romel omic alignment of the fracture. Assessment Assessment POD#1 status post left femur periprosthetic fracture ORIF. Plan Plan of Care Patient doing well postop day #1. -Continue with PT/OT, nonweightbearing left lower extremity. -Continue transition on to oral pain medication. -Keep surgical dressings clean dry and in place until follow-up. -We will likely need transfer to rehab facility once medically stable. -Orthopedically stable for discharge once medical criteria met. -Will plan to follow-up outpatient in the [facility] in [place] in approximately 10 to 14 days for x-rays and staple removal. Justicifation of Admission Dx: Justifications for Admission: Justification of Admission Dx: Yes LESLIE LOPEZ DO Jun 20, 2021 15:54
[2021-06-20] MEDS ORDERED: BISACODYL 10 MG SUPP.RECT. PR PRN (16:00)
[2021-06-20] MEDS: QUEtiapine 100 MG TABLET. PO SCH (19:55)
[2021-06-21] VITALS (12 sets, daily range): BP systolic 107–127; BP diastolic 50–63
[2021-06-21 01:45] LABS: HEMOGLOBIN 6.7 g/dL (13.0-17.5)
[2021-06-21 01:46] LABS: HEMATOCRIT 19.2 % (39.0-53.0)
[2021-06-21] MEDS: LEVOTHYROXINE 50 MCG TABLET PO SCH (06:39)
[2021-06-21] MEDS: PANTOPRAZOLE 40 MG TABLET.DR. PO SCH (06:39)
[2021-06-21] MEDS: HYDROcodone/APAP 10/325 1 TAB TABLET PO PRN ×2 (06:39→17:33)
[2021-06-21] MEDS: ASPIRIN ENTERIC COATED 81 MG TABLET.DR. PO SCH (08:57)
[2021-06-21] MEDS: CHOLECALCIFEROL (VITAMIN D3) 1,000 UNIT TABLET PO SCH (08:57)
[2021-06-21] MEDS: SENNOSIDES/DOCUSATE 8.6/50MG TABLET. PO SCH (08:57)
[2021-06-21] MEDS: THIAMINE 100 MG TABLET. PO SCH (08:57)
[2021-06-21] MEDS: FOLIC ACID 1 MG TABLET. PO SCH (08:58)
[2021-06-21] MEDS: NAPROXEN 500 MG TABLET PO SCH ×2 (08:58→20:36)
[2021-06-21] MEDS: SERTRALINE 50 MG TABLET. PO SCH (08:58)
[2021-06-21] MEDS: ENOXAPARIN 40 MG/0.4 ML SYRINGE. SQ SCH (09:00)
[2021-06-21] MEDS: CAPSAICIN 0.025% TOPICAL CREAM 60GM TUBE. TP SCH ×3 (09:00→21:00)
[2021-06-21] MEDS: POLYVINYL ALCOHOL 1.4% OPHTH SOLUTION 15ML BOTTLE. OU SCH ×4 (09:00→21:00)
[2021-06-21 10:28] LABS: HEMATOCRIT 21.2 % (39.0-53.0); HEMOGLOBIN 7.3 g/dL (13.0-17.5)
--- NOTE | 2021-06-21 11:35 | PDOC ---
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 Basically, he presented with a fall. He has got a left femur fracture, has associated pain rated at 9/10, worse with moving, better with sitting still. I discussed the case with ER physician. We are admitting the patient. 06/21/21 POD#2 Patient seen and examined in bed DWRN Chart reviewed Vitals/I&O Vitals/I&O: Vital Signs Date Time Temp Pulse Resp B/P (MAP) Pulse Ox O2 Delivery O2 Flow Rate FiO2 06/21/21 10:05 98.4 97 16 120/63 98.4 06/21/21 08:00 Room Air 06/21/21 07:21 97 I & O 06/20/21 06/20/21 06/21/21 15:00 23:00 07:00 Intake Total 680 ml 300 ml 320 ml Output Total 200 ml 1200 ml Balance 680 ml 100 ml -880 ml Physical Exam General: Alert, Cooperative, mild distress Heart: No murmurs Lungs: Clear Abdomen: Normal bowel sounds Extremities: No clubbing, No cyanosis Skin: No rashes, Other (Surgical incision clear dry and intact) Labs Labs: Laboratory Tests Test 06/21/21 01:00 06/21/21 09:50 Hemoglobin 6.7 g/dL (13.0-17.5) 7.3 g/dL (13.0-17.5) Hematocrit 19.2 % (39.0-53.0) 21.2 % (39.0-53.0) Mean Corpuscular Hemoglobin Concent 35 g/dL (31-37) 34 g/dL (31-37) Review of Systems Review of Systems: Denies headache Denies chest pain Denies SOB Assessment and Plan Assessmemt and Plan Problems Medical Problems: (1) Closed left femoral fracture Status: Acute Assessment POD#2 Left femur fracture status post left ORIF with orthopedics 06/19/2021 EtOH use Lactic acidemia Moderate protein malnutrition Obesity class I Plan Wound care PT/OT PRN pain meds DVT prophylaxis Full code Discharge disposition pending Comment Review of Relevant I have reviewed the following items michael (where applicable) has been applied. Medications: Current Medications Medications (Trade) Dose Ordered Sig/Santhosh Route PRN Reason Start Time Stop Time Status Last Admin Dose Admin Enoxaparin Sodium (Lovenox 40mg Syringe) 40 mg DAILY SQ 06/21/21 09:00 06/21/21 09:00 Justifications for Admission Other Justification MOODY MOURA III DO Jun 21, 2021 11:35
[2021-06-21] MEDS: QUEtiapine 100 MG TABLET. PO SCH (20:36)
[2021-06-21] MEDS: oxyCODONE IR 5 MG TABLET PO PRN (21:26)
[2021-06-22] MEDS: HYDROcodone/APAP 10/325 1 TAB TABLET PO PRN (01:38)
[2021-06-22 02:56] VITALS: BP 104/53
[2021-06-22] MEDS: PANTOPRAZOLE 40 MG TABLET.DR. PO SCH (06:30)
[2021-06-22] MEDS: LEVOTHYROXINE 50 MCG TABLET PO SCH (06:30)
[2021-06-22 07:00] VITALS: BP 106/45
[2021-06-22] MEDS: POLYVINYL ALCOHOL 1.4% OPHTH SOLUTION 15ML BOTTLE. OU SCH ×4 (07:35→20:20)
[2021-06-22] MEDS: CAPSAICIN 0.025% TOPICAL CREAM 60GM TUBE. TP SCH ×2 (07:36→20:19)
[2021-06-22] MEDS: ENOXAPARIN 40 MG/0.4 ML SYRINGE. SQ SCH (07:36)
[2021-06-22] MEDS: THIAMINE 100 MG TABLET. PO SCH (08:02)
[2021-06-22] MEDS: SENNOSIDES/DOCUSATE 8.6/50MG TABLET. PO SCH (08:02)
[2021-06-22] MEDS: FOLIC ACID 1 MG TABLET. PO SCH (08:02)
[2021-06-22] MEDS: NAPROXEN 500 MG TABLET PO SCH ×2 (08:02→20:18)
[2021-06-22] MEDS: SERTRALINE 50 MG TABLET. PO SCH (08:03)
[2021-06-22] MEDS: ASPIRIN ENTERIC COATED 81 MG TABLET.DR. PO SCH (08:03)
[2021-06-22] MEDS: CHOLECALCIFEROL (VITAMIN D3) 1,000 UNIT TABLET PO SCH (08:03)
[2021-06-22 08:27] LABS: HEMOGLOBIN 7.2 g/dL (13.0-17.5)
[2021-06-22 08:43] LABS: HEMATOCRIT 20.9 % (39.0-53.0)
--- NOTE | 2021-06-22 09:55 | PDOC ---
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 Basically, he presented with a fall. He has got a left femur fracture, has associated pain rated at 9/10, worse with moving, better with sitting still. I discussed the case with ER physician. We are admitting the patient. 06/21/21 POD#2 Patient seen and examined in bed DWRN Chart reviewed 06/22/31 POD#3 Patient seen and examined in bed CDI dressing on L thigh Hemoglobin stable DWRN Chart reviewed Vitals/I&O Vitals/I&O: Vital Signs Date Time Temp Pulse Resp B/P (MAP) Pulse Ox O2 Delivery O2 Flow Rate FiO2 06/22/21 07:27 Room Air 06/22/21 07:00 97.8 16 106/45 (65) 97 97.8 06/22/21 02:56 99 06/22/21 01:38 5.0 I & O 06/21/21 06/21/21 06/22/21 15:00 23:00 07:00 Intake Total 540 ml 220 ml Output Total 200 ml 200 ml Balance 540 ml 20 ml -200 ml Physical Exam General: Alert, Cooperative, mild distress Heart: No murmurs Lungs: Clear Abdomen: Normal bowel sounds Extremities: No clubbing, No cyanosis Skin: No rashes, Other (CDI dressing on L thigh) Labs Labs: Laboratory Tests Test 06/21/21 09:50 06/22/21 07:05 Hemoglobin 7.3 g/dL (13.0-17.5) 7.2 g/dL (13.0-17.5) Hematocrit 21.2 % (39.0-53.0) 20.9 % (39.0-53.0) Mean Corpuscular Hemoglobin Concent 34 g/dL (31-37) 34 g/dL (31-37) Review of Systems Review of Systems: Denies chest pain Denies SOB Assessment and Plan Assessmemt and Plan Problems Medical Problems: (1) Closed left femoral fracture Status: Acute Assessment Fall with left femur fracture status post left ORIF with orthopedics 06/19/2021 EtOH use Lactic acidemia Moderate protein malnutrition Obesity class I Plan POD#3 Wound care Trend labs Trend hemoglobin Full code DVT prophylaxis PT/OT Discharge disposition pending Comment Review of Relevant I have reviewed the following items michael (where applicable) has been applied. Justifications for Admission Other Justification MOODY MOURA III, DO Jun 22, 2021 09:55
[2021-06-22 11:00] VITALS: BP 115/58
[2021-06-22 15:00] VITALS: BP 112/57
[2021-06-22 19:00] VITALS: BP 114/62
[2021-06-22] MEDS: QUEtiapine 100 MG TABLET. PO SCH (20:19)
[2021-06-22] MEDS: oxyCODONE IR 5 MG TABLET PO PRN (20:21)
[2021-06-22 23:00] VITALS: BP 109/52
[2021-06-23 02:59] VITALS: BP 112/43
[2021-06-23] MEDS: PANTOPRAZOLE 40 MG TABLET.DR. PO SCH (06:05)
[2021-06-23] MEDS: LEVOTHYROXINE 50 MCG TABLET PO SCH (06:05)
[2021-06-23 07:00] VITALS: BP 110/54
--- NOTE | 2021-06-23 08:40 | PDOC ---
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 Basically, he presented with a fall. x r c/w left femur fracture, has associated pain rated at 9/10, worse with moving, better with sitting still. I discussed the case with ER physician. admitting the patient. 06/21/21 POD#2 Patient seen and examined in bed DWRN Chart reviewed 06/22/31 POD#3 Patient seen and examined in bed CDI dressing on L thigh Hemoglobin stable DWRN Chart reviewed 06/23/31 lwer left calf swelling neg homans No evidence of left lower extremity DVT. POD#4 hgb 7.3, chk occult blood in stool , GI consult Patient seen and examined in bed CDI dressing on L thigh Hemoglobin stable DWRN Chart reviewed Vitals Vitals Vital Signs Date Time Temp Pulse Resp B/P (MAP) Pulse Ox O2 Delivery O2 Flow Rate FiO2 06/23/21 08:00 Room Air 06/23/21 07:00 97.8 71 18 110/54 (72) 96 97.8 Physical Exam General: Alert, Oriented X3, Cooperative, mild distress Heart: No murmurs Lungs: Clear Abdomen: Normal bowel sounds Extremities: No clubbing, No cyanosis Skin: No rashes, Other (CDI dressing on L thigh) Labs LABS PATIENT: YAMILET CAO ACCOUNT: [id number] : 1955 LOCATION: [address] [place] [address] AGE: 65 SEX: M EXAM STATUS: ADM IN ORD. PHYSICIAN: BAL CRISOSTOMO MD REASON: red/tender/swollen PROCEDURE: VENOUS LOWER EXTREMITY LEFT EXAMINATION: US DPLX VENOUS EXTREMITY LOWER LT (LOWER EXTREMITY VENOUS ULTRASOUND) CLINICAL HISTORY: Left lower extremity red/tender/swollen TECHNIQUE: Sonographic grayscale images obtained of the left lower extremity deep venous system with color flow Doppler, compression, and augmentation techniques as indicated. Images obtained and stored in a permanent archive. COMPARISON: None FINDINGS: No evidence of absent flow or incompressibility within the common femoral vein, femoral vein, or popliteal vein. Visualized calf veins appear patent on limited evaluation. IMPRESSION: No evidence of left lower extremity DVT. Electronically signed by: Jerel Zuluaga DO (06/23/2021 9:43 AM) [id number] DICTATED and SIGNED BY: JEREL ZULUAGA DO DATE: 06/23/21 [id number] It helps to think and talk about your own wishes for healthcare in case youre ever not able to tell your loved ones or healthcare team what your wishes are. I f you became really sick tomorrow, would your loved ones or healthcare team know what your wishes were? Here are some examples of different sets of goals and health care directives for your conversations: My wish is to use all medical therapies including resuscitation (such as CPR) and artificial life-sustaining treatments (such as machines and medicine) in an intensive care unit, to keep me alive if at all possible. My wish is to live as long as possible, but I dont want attempts to bring me back to life if my heart and breathing stop. I would like full medical care but without using resuscitation or artificial life-sustaining intensive treatments, if these are unlikely to make me live longer or restore me to a certain quality of life. I will accept treatments that try to fix medical problems, but if Im not getting better or going to have a certain quality of life, I would want to switch to focusing only on my comfort and letting my happen naturally. My wish is for healthcare to focus on my comfort and lessen suffering. I would like medical care that focuses only on my quality of life and that allows me to naturally. Consider: What does a good quality of life mean for me? For many people, it is the ability to live independently and tell their own story. I may define it differently. Under what circumstances would I not want to be kept alive by medical treatments, resuscitation, or intensive care? What kind of changes to my health or life might make me change my mind? If I clearly am facing the last chapter of my life, how do I want the story to end? Who do I want to speak for me if I cant speak for myself? Do they understand my preferences? Are they willing to assume the role of my Durable Power of Program Development Manager? Can I change my Goals of Care Designation? Yes, your Goals of Care Designation can be changed at any time. It should be reviewed if: your health condition changes your circumstances change (such as new understanding) you are transferred or admitted to another healthcare setting dpoa review, to pt portal 20 min and question review OPERATIVE NOTE OPERATIVE NOTE: Date of surgery: 06/19/2021 Preoperative diagnosis: Displaced left femur periprosthetic fracture. Postoperative diagnosis: Same Surgical procedure: Left femur periprosthetic fracture open reduction internal fixation. Surgeon: Ryan Rojas DO/JEFF Anesthesia: General Antibiotics: Ancef Orthopedic implants: [employer] 12 hole large fragment plate Operative indications: Mr. Cao is a 65-year-old male admitted through emergency department with above-mentioned diagnosis. Radiographs reveal a long oblique displaced fracture. We discussed the indications, risk, benefits, and alternatives to surgery. He demonstrated understanding wish to proceed. Assessment and Plan Assessmemt and Plan Problems Medical Problems: (1) Closed left femoral fracture Status: Acute Comment Review of Relevant I have reviewed the following items michael (where applicable) has been applied. Labs Laboratory Tests Test 06/21/21 09:50 06/22/21 07:05 Hemoglobin 7.3 g/dL (13.0-17.5) 7.2 g/dL (13.0-17.5) Hematocrit 21.2 % (39.0-53.0) 20.9 % (39.0-53.0) Mean Corpuscular Hemoglobin Concent 34 g/dL (31-37) 34 g/dL (31-37) Medications Current Medications Sodium Chloride 1,000 ml @ 1,000 mls/hr 1X ONCE IV Last administered on 06/18/21at 21:30; Start 06/18/21 at 22:30; Stop 06/18/21 at 23:29; Status DC Fentanyl Citrate (Fentanyl 2ml Vial) 75 mcg 1X ONCE IVP Last administered on 06/18/21at 23:46; Start 06/18/21 at 22:30; Stop 06/18/21 at 22:31; Status DC Ondansetron HCl (Zofran) 4 mg PRN Q8HRS PRN IV NAUSEA/VOMITING 1ST CHOICE Last administered on 06/19/21at 00:51; Start 06/18/21 at 23:00; Stop 06/19/21 at 21:00; Status DC Morphine Sulfate (Morphine Sulfate) 4 mg PRN Q2HR PRN IV SEVERE PAIN 7-10 Last administered on 06/19/21at 17:07; Start 06/18/21 at 23:00; Stop 06/19/21 at 21:03; Status DC Sodium Chloride 1,000 ml @ 75 mls/hr [id number] IV Last administered on 06/19/21at 22:49; Start 06/18/21 at 23:30; Stop 06/19/21 at 23:29; Status DC Acetaminophen (Tylenol) 650 mg PRN Q4HRS PRN PO FEVER > 100.3'F; Start 06/18/21 at 23:00; Stop 06/19/21 at 22:59; Status DC Fentanyl Citrate (Fentanyl 2ml Vial) 25 mcg PRN Q5MIN PRN IVP MILD PAIN 1-3; Start 06/19/21 at 10:15; Stop 06/19/21 at 19:00; Status DC Fentanyl Citrate (Fentanyl 2ml Vial) 50 mcg PRN Q5MIN PRN IVP MODERATE PAIN 4- 6; Start 06/19/21 at 10:15; Stop 06/19/21 at 19:00; Status DC Morphine Sulfate (Morphine Sulfate) 1 mg PRN Q10MIN PRN IVP SEVERE PAIN 7-10; Start 06/19/21 at 10:15; Stop 06/19/21 at 19:00; Status DC Ringer's Solution 1,000 ml @ 30 mls/hr Q24H IV ; Start 06/19/21 at 10:15; Stop 06/19/21 at 22:14; Status DC Hydromorphone HCl (Dilaudid) 0.5 mg PRN Q10MIN PRN IVP SEVERE PAIN 7-10, 2nd CHOICE; Start 06/19/21 at 10:15; Stop 06/19/21 at 19:00; Status DC Prochlorperazine Edisylate (Compazine) 5 mg PACU PRN PRN IVP NAUSEA, MRX1; Start 06/19/21 at 10:15; Stop 06/19/21 at 19:00; Status DC Aspirin (Ecotrin) 81 mg DAILY PO Last administered on 06/22/21at 08:03; Start 06/20/21 at 09:00 Vitamin D (Vitamin D3) 1,000 unit DAILY PO Last administered on 06/22/21 08:03; Start 06/20/21 at 09:00 Levothyroxine Sodium (Synthroid) 50 mcg DAILY06 PO Last administered on 06/23/21 06:05; Start 06/20/21 at 06:00 Lorazepam (Ativan) 1 mg BID PO Last administered on 06/22/21 20:18; Start 06/19/21 at 21:00 Naproxen (Naprosyn) 500 mg BID PO Last administered on 06/22/21 20:18; Start 06/19/21 at 21:00 Capsaicin (Zostrix) 1 enrrique TID TP ; Start 06/19/21 at 14:00 Glycerin/ Hypromellose/ Polyethylene (Artificial Tears) 1 drop QID OU Last administered on 06/22/21at 20:20; Start 06/19/21 at 13:00 Pantoprazole Sodium (Protonix) 40 mg DAILYAC PO Last administered on 06/23/21at 06:05; Start 06/20/21 at 07:30 Quetiapine Fumarate (SEROquel) 150 mg HS PO Last administered on 06/22/21 20:19; Start 06/19/21 at 21:00 Sertraline HCl (Zoloft) 200 mg DAILY PO Last administered on 06/22/21 08:03; Start 06/20/21 at 09:00 Albuterol Sulfate (Ventolin Neb Soln) 2.5 mg PRN QID PRN NEB WHEEZING; Start 06/19/21 at 11:45 Oxycodone/ Acetaminophen (Percocet 7.5/ 325) 1 tab PRN Q4HRS PRN PO SEVERE PAIN, 2ND CHOICE Last administered on 06/20/21at 05:38; Start 06/19/21 at 12:15 Lorazepam (Ativan) 1 mg 1X ONCE PO Last administered on 06/19/21at 12:28; Start 06/19/21 at 12:30; Stop 06/19/21 at 12:31; Status DC Thiamine Mononitrate (Vitamin B-1) 100 mg DAILY PO Last administered on 06/22/21 08:02; Start 06/20/21 at 09:00 Folic Acid (Folic Acid) 1 mg DAILY PO Last administered on 8/1/21at 08:02; Start 06/20/21 at 09:00 Propofol (Diprivan) 200 mg STK-MED ONCE IV ; Start 06/19/21 at 15:16; Stop 06/19/21 at 15:17; Status DC Lidocaine HCl (Lidocaine Pf 2% Vial) 5 ml STK-MED ONCE .ROUTE ; Start 06/19/21 at 15:17; Stop 06/19/21 at 15:17; Status DC Dexamethasone Sodium Phosphate (Decadron) 4 mg STK-MED ONCE .ROUTE ; Start 06/19/21 at 15:17; Stop 06/19/21 at 15:17; Status DC Ondansetron HCl (Zofran) 4 mg STK-MED ONCE .ROUTE ; Start 06/19/21 at 15:17; Stop 06/19/21 at 15:17; Status DC Phenylephrine HCl (PHENYLEPHRINE in 0.9% NACL PF) 1 mg STK-MED ONCE IV ; Start 06/19/21 at 15:17; Stop 06/19/21 at 15:17; Status DC Rocuronium Hitchita (Zemuron) 50 mg STK-MED ONCE .ROUTE ; Start 06/19/21 at 15:17; Stop 06/19/21 at 15:17; Status DC Bupivacaine HCl/ Epinephrine Bitart (Sensorcaine-Epi 0.25%-1:225774 Mpf) 30 ml STK-MED ONCE .ROUTE ; Start 06/19/21 at 17:44; Stop 06/19/21 at 17:44; Status DC Fentanyl Citrate (Fentanyl 2ml Vial) 100 mcg STK-MED ONCE .ROUTE ; Start 06/19/21 at 18:19; Stop 06/19/21 at 18:19; Status DC Cefazolin Sodium/ Dextrose 50 ml @ As Directed STK-MED ONCE IV ; Start 06/19/21 at 18:21; Stop 06/19/21 at 18:21; Status DC Ketamine HCl (Ketamine) 50 mg STK-MED ONCE .ROUTE ; Start 06/19/21 at 18:44; Stop 06/19/21 at 18:45; Status DC Tranexamic Acid 50 ml @ As Directed STK-MED ONCE .ROUTE ; Start 06/19/21 at 19:02; Stop 06/19/21 at 19:03; Status DC Albumin Human 0 ml @ As Directed STK-MED ONCE IV ; Start 06/19/21 at 19:50; Stop 06/19/21 at 19:50; Status DC Albumin Human 500 ml @ As Directed STK-MED ONCE IV ; Start 06/19/21 at 19:56; Stop 06/19/21 at 19:56; Status DC Albumin Human 500 ml @ As Directed STK-MED ONCE IV ; Start 06/19/21 at 19:57; Stop 06/19/21 at 19:57; Status DC Ephedrine Sulfate (ePHEDrine PF IN SALINE SYRINGE) 50 mg STK-MED ONCE IV ; Start 06/19/21 at 20:25; Stop 06/19/21 at 20:25; Status DC Sevoflurane (Ultane) 90 ml STK-MED ONCE IH ; Start 06/19/21 at 20:26; Stop 06/19/21 at 20:26; Status DC Oxycodone HCl (Roxicodone) 5 mg PRN Q3HRS PRN PO MODERATE PAIN 4-6, 2ND CHOICE Last administered on 06/22/21at 20:21; Start 06/19/21 at 20:45 Fentanyl Citrate (Fentanyl 2ml Vial) 25 mcg PRN Q1HR PRN IVP SEVERE PAIN 7-10; Start 06/19/21 at 20:45 Senna/Docusate Sodium (Senna Plus) 1 tab DAILY PO Last administered on 06/22/21at 08:02; Start 06/20/21 at 09:00 Polyethylene Glycol (miraLAX PACKET) 17 gm PRN DAILY PRN PO CONSTIPATION; Start 06/19/21 at 20:45 Ondansetron HCl (Zofran) 4 mg PRN Q4HRS PRN IVP NAUSEA/VOMITING Last administered on 06/20/21at 06:17; Start 06/19/21 at 20:45 Enoxaparin Sodium (Lovenox 40mg Syringe) 40 mg DAILY SQ Last administered on 06/21/21at 09:00; Start 06/21/21 at 09:00 Magnesium Hydroxide (Milk Of Magnesia) 2,400 mg 1X PRN PRN PO CONSTIPATION; Start 06/20/21 at 06:00; Stop 06/21/21 at 05:59; Status DC Bisacodyl (Dulcolax Supp) 10 mg 1X PRN PRN TN CONSTIPATION; Start 06/20/21 at 16:00; Stop 06/21/21 at 15:59; Status DC Acetaminophen/ Hydrocodone Bitart (Lortab 7.5/325) 1 tab PRN Q4HRS PRN PO MODERATE PAIN- 1ST CHOICE; Start 06/19/21 at 20:45 Morphine Sulfate (Morphine Sulfate) 4 mg PRN Q2HR PRN IVP SEVERE PAIN 7-10 Last administered on 06/20/21at 16:34; Start 06/19/21 at 20:45 Dextrose (Dextrose 50%-Water Syringe) 12.5 gm PRN Q15MIN PRN IV SEE COMMENTS; Start 06/19/21 at 20:45 Cefazolin Sodium/ Dextrose 50 ml @ 100 mls/hr Q6H IV Last administered on 06/20/21at 12:50; Start 06/20/21 at 00:00; Stop 06/20/21 at 12:29; Status DC Fentanyl Citrate (Fentanyl 2ml Vial) 25 mcg PRN Q5MIN PRN IVP MILD PAIN 1-3; Start 06/19/21 at 21:15; Stop 06/20/21 at 03:00; Status DC Fentanyl Citrate (Fentanyl 2ml Vial) 50 mcg PRN Q5MIN PRN IVP MODERATE PAIN 4-6 Last administered on 06/19/21at 21:27; Start 06/19/21 at 21:15; Stop 06/20/21 at 03:00; Status DC Morphine Sulfate (Morphine Sulfate) 1 mg PRN Q10MIN PRN IVP SEVERE PAIN 7-10; Start 06/19/21 at 21:15; Stop 06/20/21 at 03:00; Status DC Ringer's Solution 1,000 ml @ 30 mls/hr Q24H IV ; Start 06/19/21 at 21:15; Stop 06/20/21 at 03:00; Status DC Hydromorphone HCl (Dilaudid) 0.5 mg PRN Q10MIN PRN IVP SEVERE PAIN 7-10, 2nd CHOICE Last administered on 06/19/21at 22:33; Start 06/19/21 at 21:15; Stop 06/20/21 at 03:00; Status DC Fentanyl Citrate (Fentanyl 2ml Vial) 100 mcg STK-MED ONCE .ROUTE ; Start at 21:14; Stop 06/19/21 at 21:14; Status DC Hydromorphone HCl (Dilaudid) 2 mg STK-MED ONCE .ROUTE ; Start 06/19/21 at 21:42; Stop 06/19/21 at 21:43; Status DC Acetaminophen/ Hydrocodone Bitart (Lortab 10/325) 1 tab PRN Q6HRS PRN PO SEVERE PAIN - 1ST CHOICE Last administered on 06/22/21at 01:38; Start 06/20/21 at 10:00 Active Scripts Active Reported Levothyroxine Sodium 50 Mcg Tablet 50 Mcg PO DAILYAC Aspirin Ec (Aspirin) 81 Mg Tablet. 81 Mg PO DAILY Zoloft (Sertraline Hcl) 100 Mg Tablet 250 Mg PO DAILY Seroquel (Quetiapine Fumarate) 300 Mg Tablet 150 Mg PO HS Vitamin D3 (Vitamin D) 25 Mcg Tablet 25 Mcg PO DAILY 1,000 UNITS = 25 MCG Thera Tears (Carboxymethylcellulose Sodium) 15 Ml Drops 1 Drop EACHEYE QID Omeprazole 20 Mg Capsule. 20 Mg PO DAILY Naproxen 500 Mg Tablet 500 Mg PO BID 30 Days Capsaicin 42.5 Gm Cream..g. 1 Enrrique TP TID Proair Hfa Inhaler (Albuterol Sulfate) 8.5 Gm Hfa.aer.ad 1 Puff IH PRN Q4-6HRS PRN 21 Days Ativan (Lorazepam) 1 Mg Tablet 1 Mg PO BID Vitals/I & O Vital Sign - Last 24 Hours 06/22/21 06/22/21 06/22/21 06/22/21 11:00 15:00 19:00 20:00 Temp 97.4 98.0 98.1 97.4 98.0 98.1 Pulse 79 86 72 Resp 16 16 18 B/P (MAP) 115/58 (77) 112/57 (75) 114/62 (79) Pulse Ox 99 96 98 O2 Delivery Room Air Room Air Room Air Room Air 06/22/21 06/22/21 06/22/21 06/23/21 20:21 20:53 23:00 02:59 Temp 98.4 97.8 98.4 97.8 Pulse 83 79 Resp 14 16 18 18 B/P (MAP) 109/52 (71) 112/43 (66) Pulse Ox 98 97 O2 Delivery Room Air Room Air Room Air Room Air 06/23/21 06/23/21 07:00 08:00 Temp 97.8 97.8 Pulse 71 Resp 18 B/P (MAP) 110/54 (72) Pulse Ox 96 O2 Delivery Room Air Room Air Intake and Output 06/22/21 06/22/21 06/23/21 15:00 23:00 07:00 Intake Total 250 ml 525 ml Output Total 500 ml 650 ml 325 ml Balance -250 ml -125 ml -325 ml Justicifation of Admission Dx: Justifications for Admission: Justification of Admission Dx: Yes BAL CRISOSTOMO MD Jun 23, 2021 08:40
[2021-06-23] MEDS: CAPSAICIN 0.025% TOPICAL CREAM 60GM TUBE. TP SCH ×3 (09:00→21:00)
[2021-06-23] MEDS: ENOXAPARIN 40 MG/0.4 ML SYRINGE. SQ SCH (09:00)
--- NOTE | 2021-06-23 09:46 | RAD ---
EXAMINATION: US DPLX VENOUS EXTREMITY LOWER LT (LOWER EXTREMITY VENOUS ULTRASOUND) CLINICAL HISTORY: Left lower extremity red/tender/swollen TECHNIQUE: Sonographic grayscale images obtained of the left lower extremity deep venous system with color flow Doppler, compression, and augmentation techniques as indicated. Images obtained and store d in a permanent archive. COMPARISON: None FINDINGS: No evidence of absent flow or incompressibility within the common femoral vein, femoral vein, or popl iteal vein. Visualized calf veins appear patent on limited evaluation. IMPRESSION: No evidence of left lower extremity DVT. Electronically signed by: Jerel Pastrana DO (06/23/2021 9:43 AM) [id number]
[2021-06-23 10:31] LABS: BASO % 0 % (0-3); EOS # 0.1 x10^3/uL (0.0-0.7); EOS % 3 % (0-3); HEMATOCRIT 21.1 % (39.0-53.0); HEMOGLOBIN 7.3 g/dL (13.0-17.5); LYMPH # 0.8 x10^3/uL (1.0-4.8); LYMPH % 31 % (24-48); MEAN CORPUSCULAR HEMOGLOBIN 32 pg (25-35); MEAN CORPUSCULAR HGB CONC 35 g/dL (31-37); MEAN CORPUSCULAR VOLUME 94 fL (79-100); MONO # 0.3 x10^3/uL (0.0-1.1); MONO % 11 % (0-9); NEUT # 1.4 x10^3/uL (1.8-7.7); NEUT % 54 % (31-73); PLATELET COUNT 86 x10^3/uL (140-400); RED BLOOD COUNT 2.25 x10^6/uL (4.30-5.70); RED CELL DISTRIBUTION WIDTH 15.8 % (11.5-14.5); WHITE BLOOD COUNT 2.6 x10^3/uL (4.0-11.0)
[2021-06-23 11:00] VITALS: BP 122/62
[2021-06-23] MEDS: POLYVINYL ALCOHOL 1.4% OPHTH SOLUTION 15ML BOTTLE. OU SCH ×4 (12:03→21:00)
[2021-06-23] MEDS: CHOLECALCIFEROL (VITAMIN D3) 1,000 UNIT TABLET PO SCH (12:04)
[2021-06-23] MEDS: THIAMINE 100 MG TABLET. PO SCH (12:04)
[2021-06-23] MEDS: SERTRALINE 50 MG TABLET. PO SCH (12:04)
[2021-06-23] MEDS: SENNOSIDES/DOCUSATE 8.6/50MG TABLET. PO SCH (12:04)
[2021-06-23] MEDS: NAPROXEN 500 MG TABLET PO SCH ×2 (12:04→21:13)
[2021-06-23] MEDS: oxyCODONE/APAP 7.5/325 1 TAB TABLET PO PRN (12:04)
[2021-06-23] MEDS: FOLIC ACID 1 MG TABLET. PO SCH (12:05)
[2021-06-23] MEDS: ASPIRIN ENTERIC COATED 81 MG TABLET.DR. PO SCH (12:06)
--- NOTE | 2021-06-23 14:09 | NUR ---
SW following. Discussed with RN, pt from home, room air, NPO, COVID-19 negative. GI following. Therapy recommending SNF. MUMTAZ met with pt, pt does not want to go to SNF, wants home health instead. Pt does not have a preference of provider. MUMTAZ faxed referral to [facility] who take MD plans. Awaiting acceptance decision. MUMTAZ will continue to follow. Addendum: 06/23/21 at 1624 by CHRISTOFER PANDYA Terri asking if auth has been received from the MD - MUMTAZ has not come across this with other companies so faxed referral to [facility]. MUMTAZ will continue to follow. RN notified.
--- NOTE | 2021-06-23 14:13 | PDOC2 ---
GI CONSULT Date of Service: DATE: 06/23/21 TIME: 13:58 Reason For Consult: drop in Hgb HPI: HPI: 65 y/o male admitted 06/18 after fall at home, s/p left femur ORIF 06/19. Hgb 11.8 on admission, drift to 6.7 and required 1 unit pRBC, stable in 7s x 3 days. He says he needs to get ahold of his neighbor in the [employer] [facility] who is a production planning supervisor at [employer] and [employer] because he has bills to pay and needs someone to check on his parrot. He is pleasant and very talkative - says the only place he's going is home and he'll leave on his own if he has too. He denies obvious GI bleeding including hematemesis, hematochezia, and melena. H/o GERD controlled w/ omeprazole BID. No dysphagia, n/v, abd pain, diarrhea, or change in appetite. Typically eats once daily. Has lost about 80 pounds since 2016 when passed (but stable recently). Typically no issues w/ constipation but hasn't stooled since admission. Previous EGD and colonoscopy "at my hospital" (the [place]) about 5-6 years ago - indicates EGD was unremarkable and had poor prep with colonoscopy. No GB, liver, pancreas, or PUD history. No h/o anemia, no previous blood transfusions. Takes Aleve fairly regularly at home. Used to take ASA but stopped. Takes daily vitamin. Summary list shows Naproxen. Doesn't really like people except for his one neighbor friend. 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 Hard to get around at home - uses walker, gave his car to his daughter, has to walk a couple blocks to check his mail and get to [employer]. PMH: PMH: ?COPD, hypothyroidism, anxiety, GERD chart lists HTN, HLD, and asthma - he denies bilateral hip replacements, knee injections FH: Family History: Cancer (MGM - esophageal, other relatives w/ lymphoma) Social History: Smoke: <1 pack per day ALCOHOL: heavy (ethyl alcohol 218 on admission - notes mention he drank rum while laying on the floor after fall - he says not a heavy drinker) Drugs: Other (marijuana in past, no IVDU) ROS: GEN: Denies fevers, chills, sweats HEENT: Denies blurred vision, sore throat CV: Denies chest pain RESP: Denies shortness of air, cough GI: Per HPI : Denies hematuria, dysuria ENDO: Weight loss since passed in 2017 NEURO: Denies confusion, dizziness MSK: LLE pain SKIN: Denies jaundice, pruritus Vitals: Vitals: Vital Signs Date Time Temp Pulse Resp B/P (MAP) Pulse Ox O2 Delivery O2 Flow Rate FiO2 06/23/21 13:03 96 Room Air 5.0 06/23/21 11:00 98.0 85 18 122/62 (82) 98.0 Labs: Labs: Laboratory Tests Test 06/23/21 10:00 White Blood Count 2.6 x10^3/uL (4.0-11.0) Red Blood Count 2.25 x10^6/uL (4.30-5.70) Hemoglobin 7.3 g/dL (13.0-17.5) Hematocrit 21.1 % (39.0-53.0) Mean Corpuscular Volume 94 fL (79-100) Mean Corpuscular Hemoglobin 32 pg (25-35) Mean Corpuscular Hemoglobin Concent 35 g/dL (31-37) Red Cell Distribution Width 15.8 % (11.5-14.5) Platelet Count 86 x10^3/uL (140-400) Neutrophils (%) (Auto) 54 % (31-73) Lymphocytes (%) (Auto) 31 % (24-48) Monocytes (%) (Auto) 11 % (0-9) Eosinophils (%) (Auto) 3 % (0-3) Basophils (%) (Auto) 0 % (0-3) Neutrophils # (Auto) 1.4 x10^3/uL (1.8-7.7) Lymphocytes # (Auto) 0.8 x10^3/uL (1.0-4.8) Monocytes # (Auto) 0.3 x10^3/uL (0.0-1.1) Eosinophils # (Auto) 0.1 x10^3/uL (0.0-0.7) Basophils # (Auto) 0.0 x10^3/uL (0.0-0.2) Allergies: Coded Allergies: No Known Drug Allergies (Unverified , 06/18/21) Medications: see EMR Imaging: Imaging: LE US 06/23 IMPRESSION: No evidence of left lower extremity DVT. Femur X-Ray 06/19 IMPRESSION: Postop open reduction and internal fixation of the oblique fracture of the distal femoral shaft with good anatomic alignment. PE: GEN: NAD HEENT: Atraumatic, PERRL, poor dentition LUNGS: diminished anteriorly HEART: RRR ABD: NABS, S/ND/NT EXTREMITY: favoring LLE under sheet NEURO/PSYCH: A & O 3, really talkative A/P: A/P: S/p left femur ORIF Anemia - more significant post-op Elevated AST and Alk Phos - better GERD - on PPI Constipation - since surgery CRC screen - ?poor prep at [place] 5-6 years ago NSAID use Probably alcohol overuse COVID negative -- He's anxious to go home. No obvious GI bleeding. Anemia probably mostly related to fracture. Can check iron profile for completeness and will try to get records from [place] re: past scopes. Continue PPI. Treat constipation more aggressively (though he's not too motivated w/ limited mobility). Monitor LFTs, could consider liver imaging (could be done outpt). Communicated his request for a phone in his room w/ staff. BARON KAPOOR Jun 23, 2021 14:13
[2021-06-23] MEDS ORDERED: BISACODYL 5 MG TABLET.DR. PO PRN (14:15)
--- NOTE | 2021-06-23 14:43 | PDOC3 ---
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 Basically, he presented with a fall. x r c/w left femur fracture, has associated pain rated at 9/10, worse with moving, better with sitting still. I discussed the case with ER physician. admitting the patient. 06/21/21 POD#2 Patient seen and examined in bed DWRN Chart reviewed 06/22/31 POD#3 Patient seen and examined in bed CDI dressing on L thigh Hemoglobin stable DWRN Chart reviewed 06/23/31 lwer left calf swelling neg homans No evidence of left lower extremity DVT. POD#4 hgb 7.3, chk occult blood in stool , GI consult WILL SEE OUT PT SOON Patient seen and examined in bed CDI dressing on L thigh Hemoglobin stable DWRN Chart reviewed REFUSED SNF [facility]MA DEMANDS HOME HEALTH ON D/C D/C PLANNING 34 MIN Vitals Vitals Vital Signs Date Time Temp Pulse Resp B/P (MAP) Pulse Ox O2 Delivery O2 Flow Rate FiO2 06/23/21 08:00 Room Air 06/23/21 07:00 97.8 71 18 110/54 (72) 96 97.8 Physical Exam General: Alert, Oriented X3, Cooperative, mild distress Heart: No murmurs Lungs: Clear Abdomen: Normal bowel sounds Extremities: No clubbing, No cyanosis Skin: No rashes, Other (CDI dressing on L thigh) Labs LABS PATIENT: YAMILET CAO ACCOUNT: [id number] : 1955 LOCATION: [address] [place] [address] AGE: 65 SEX: M EXAM STATUS: ADM IN ORD. PHYSICIAN: BAL CRISOSTOMO MD REASON: red/tender/swollen PROCEDURE: VENOUS LOWER EXTREMITY LEFT EXAMINATION: US DPLX VENOUS EXTREMITY LOWER LT (LOWER EXTREMITY VENOUS ULTRASOUND) CLINICAL HISTORY: Left lower extremity red/tender/swollen TECHNIQUE: Sonographic grayscale images obtained of the left lower extremity deep venous system with color flow Doppler, compression, and augmentation techniques as indicated. Images obtained and stored in a permanent archive. COMPARISON: None FINDINGS: No evidence of absent flow or incompressibility within the common femoral vein, femoral vein, or popliteal vein. Visualized calf veins appear patent on limited evaluation. IMPRESSION: No evidence of left lower extremity DVT. Electronically signed by: Jerel Zuluaga DO (06/23/2021 9:43 AM) [id number] DICTATED and SIGNED BY: JEREL ZULUAGA DO DATE: 06/23/21 [id number] It helps to think and talk about your own wishes for healthcare in case youre ever not able to tell your loved ones or healthcare team what your wishes are. If you became really sick tomorrow, would your loved ones or healthcare team know what your wishes were? Here are some examples of different sets of goals and health care directives for your conversations: My wish is to use all medical therapies including resuscitation (such as CPR) and artificial life- sustaining treatments (such as machines and medicine) in an intensive care unit, to keep me alive if at all possible. My wish is to live as long as possible, but I dont want attempts to bring me back to life if my heart and breathing stop. I would like full medical care but without using resuscitation or artificial life-sustaining intensive treatments, if these are unlikely to make me live longer or restore me to a certain quality of life. I will accept treatments that try to fix medical problems, but if Im not getting better or going to have a certain quality of life, I would want to switch to focusing only on my comfort and letting my happen naturally. My wish is for healthcare to focus on my comfort and lessen suffering. I would like medical care that focuses only on my quality of life and that allows me to naturally. Consider: What does a good quality of life mean for me? For many people, it is the ability to live independently and tell their own story. I may define it differently. Under what circumstances would I not want to be kept alive by medical treatments, resuscitation, or intensive care? What kind of changes to my health or life might make me change my mind? If I clearly am facing the last chapter of my life, how do I want the story to end? Who do I want to speak for me if I cant speak for myself? Do they understand my preferences? Are they willing to assume the role of my Durable Power of Food And Beverage Associate? Can I change my Goals of Care Designation? Yes, your Goals of Care Designation can be changed at any time. It should be reviewed if: your health condition changes your circumstances change (such as new understanding) you are transferred or admitted to another healthcare setting dpoa review, to pt portal 20 min and question review OPERATIVE NOTE OPERATIVE NOTE: Date of surgery: 06/19/2021 Preoperative diagnosis: Displaced left femur periprosthetic fracture. Postoperative diagnosis: Same Surgical procedure: Left femur periprosthetic fracture open reduction internal fixation. Surgeon: Ryan Rojas DO/JEFF Anesthesia: General Antibiotics: Ancef Orthopedic implants: [employer] 12 hole large fragment plate Operative indications: Mr. Cao is a 65-year-old male admitted through emergency department with above-mentioned diagnosis. Radiographs reveal a long oblique displaced fracture. We discussed the indications, risk, benefits, and alternatives to surgery. He demonstrated understanding wish to proceed. Assessment and Plan Assessmemt and Plan Problems Medical Problems: (1) Closed left femoral fracture Status: Acute FINAL DIAGNOSIS Problems Medical Problems: (1) Closed left femoral fracture Status: Acute Brief Hospital Course Mr. Cao is a 65 old [sex] who presented with [FEMUR FX , FALL ] CONDITION AT DISCHARGE: Improved Discharge Medications Current Medications Sodium Chloride 1,000 ml @ 1,000 mls/hr 1X ONCE IV Last administered on 06/18/21at 21:30; Start 06/18/21 at 22:30; Stop 06/18/21 at 23:29; Status DC Fentanyl Citrate (Fentanyl 2ml Vial) 75 mcg 1X ONCE IVP Last administered on 06/18/21at 23:46; Start 06/18/21 at 22:30; Stop 06/18/21 at 22:31; Status DC Ondansetron HCl (Zofran) 4 mg PRN Q8HRS PRN IV NAUSEA/VOMITING 1ST CHOICE Last administered on 06/19/21at 00:51; Start 06/18/21 at 23:00; Stop 06/19/21 at 21:00; Status DC Morphine Sulfate (Morphine Sulfate) 4 mg PRN Q2HR PRN IV SEVERE PAIN 7-10 Last administered on 06/19/21at 17:07; Start 06/18/21 at 23:00; Stop 06/19/21 at 21:03; Status DC Sodium Chloride 1,000 ml @ 75 mls/hr [id number] IV Last administered on 06/19/21at 22:49; Start 06/18/21 at 23:30; Stop 06/19/21 at 23:29; Status DC Acetaminophen (Tylenol) 650 mg PRN Q4HRS PRN PO FEVER > 100.3'F; Start 06/18/21 at 23:00; Stop 06/19/21 at 22:59; Status DC Fentanyl Citrate (Fentanyl 2ml Vial) 25 mcg PRN Q5MIN PRN IVP MILD PAIN 1-3; Start 06/19/21 at 10:15; Stop 06/19/21 at 19:00; Status DC Fentanyl Citrate (Fentanyl 2ml Vial) 50 mcg PRN Q5MIN PRN IVP MODERATE PAIN 4- 6; Start 06/19/21 at 10:15; Stop 06/19/21 at 19:00; Status DC Morphine Sulfate (Morphine Sulfate) 1 mg PRN Q10MIN PRN IVP SEVERE PAIN 7-10; Start 06/19/21 at 10:15; Stop 06/19/21 at 19:00; Status DC Ringer's Solution 1,000 ml @ 30 mls/hr Q24H IV ; Start 06/19/21 at 10:15; Stop 06/19/21 at 22:14; Status DC Hydromorphone HCl (Dilaudid) 0.5 mg PRN Q10MIN PRN IVP SEVERE PAIN 7-10, 2nd CHOICE; Start 06/19/21 at 10:15; Stop 06/19/21 at 19:00; Status DC Prochlorperazine Edisylate (Compazine) 5 mg PACU PRN PRN IVP NAUSEA, MRX1; Start 06/19/21 at 10:15; Stop 06/19/21 at 19:00; Status DC Aspirin (Ecotrin) 81 mg DAILY PO Last administered on 8/2/21at 12:06; Start 06/20/21 at 09:00 Vitamin D (Vitamin D3) 1,000 unit DAILY PO Last administered on 06/23/21 12:04; Start 06/20/21 at 09:00 Levothyroxine Sodium (Synthroid) 50 mcg DAILY06 PO Last administered on 06/23/21 06:05; Start 06/20/21 at 06:00 Lorazepam (Ativan) 1 mg BID PO Last administered on 06/23/21 12:04; Start 06/19/21 at 21:00 Naproxen (Naprosyn) 500 mg BID PO Last administered on 06/23/21 12:04; Start 06/19/21 at 21:00 Capsaicin (Zostrix) 1 enrrique TID TP ; Start 06/19/21 at 14:00 Glycerin/ Hypromellose/ Polyethylene (Artificial Tears) 1 drop QID OU Last administered on 06/23/21 12:03; Start 06/19/21 at 13:00 Pantoprazole Sodium (Protonix) 40 mg DAILYAC PO Last administered on 06/23/21at 06:05; Start 06/20/21 at 07:30 Quetiapine Fumarate (SEROquel) 150 mg HS PO Last administered on 06/22/21 20:19; Start 06/19/21 at 21:00 Sertraline HCl (Zoloft) 200 mg DAILY PO Last administered on 06/23/21 12:04; Start 06/20/21 at 09:00 Albuterol Sulfate (Ventolin Neb Soln) 2.5 mg PRN QID PRN NEB WHEEZING; Start 06/19/21 at 11:45 Oxycodone/ Acetaminophen (Percocet 7.5/ 325) 1 tab PRN Q4HRS PRN PO SEVERE PAIN, 2ND CHOICE Last administered on 06/23/21 12:04; Start 06/19/21 at 12:15 Lorazepam (Ativan) 1 mg 1X ONCE PO Last administered on 06/19/21 12:28; Start 06/19/21 at 12:30; Stop 06/19/21 at 12:31; Status DC Thiamine Mononitrate (Vitamin B-1) 100 mg DAILY PO Last administered on 12:04; Start 06/20/21 at 09:00 Folic Acid (Folic Acid) 1 mg DAILY PO Last administered on 06/23/21at 12:05; Start 06/20/21 at 09:00 Propofol (Diprivan) 200 mg STK-MED ONCE IV ; Start 06/19/21 at 15:16; Stop 06/19/21 at 15:17; Status DC Lidocaine HCl (Lidocaine Pf 2% Vial) 5 ml STK-MED ONCE .ROUTE ; Start 06/19/21 at 15:17; Stop 06/19/21 at 15:17; Status DC Dexamethasone Sodium Phosphate (Decadron) 4 mg STK-MED ONCE .ROUTE ; Start 06/19/21 at 15:17; Stop 06/19/21 at 15:17; Status DC Ondansetron HCl (Zofran) 4 mg STK-MED ONCE .ROUTE ; Start 06/19/21 at 15:17; Stop 06/19/21 at 15:17; Status DC Phenylephrine HCl (PHENYLEPHRINE in 0.9% NACL PF) 1 mg STK-MED ONCE IV ; Start 06/19/21 at 15:17; Stop 06/19/21 at 15:17; Status DC Rocuronium [place] (Zemuron) 50 mg STK-MED ONCE .ROUTE ; Start 06/19/21 at 15:17; Stop 06/19/21 at 15:17; Status DC Bupivacaine HCl/ Epinephrine Bitart (Sensorcaine-Epi 0.25%-1:140169 Mpf) 30 ml STK-MED ONCE .ROUTE ; Start 06/19/21 at 17:44; Stop 06/19/21 at 17:44; Status DC Fentanyl Citrate (Fentanyl 2ml Vial) 100 mcg STK-MED ONCE .ROUTE ; Start 06/19/21 at 18:19; Stop 06/19/21 at 18:19; Status DC Cefazolin Sodium/ Dextrose 50 ml @ As Directed STK-MED ONCE IV ; Start 06/19/21 at 18:21; Stop 06/19/21 at 18:21; Status DC Ketamine HCl (Ketamine) 50 mg STK-MED ONCE .ROUTE ; Start 06/19/21 at 18:44; Stop 06/19/21 at 18:45; Status DC Tranexamic Acid 50 ml @ As Directed STK-MED ONCE .ROUTE ; Start 06/19/21 at 19:02; Stop 06/19/21 at 19:03; Status DC Albumin Human 0 ml @ As Directed STK-MED ONCE IV ; Start 06/19/21 at 19:50; Stop 06/19/21 at 19:50; Status DC Albumin Human 500 ml @ As Directed STK-MED ONCE IV ; Start 06/19/21 at 19:56; Stop 06/19/21 at 19:56; Status DC Albumin Human 500 ml @ As Directed STK-MED ONCE IV ; Start 06/19/21 at 19:57; Stop 06/19/21 at 19:57; Status DC Ephedrine Sulfate (ePHEDrine PF IN SALINE SYRINGE) 50 mg STK-MED ONCE IV ; Star t 06/19/21 at 20:25; Stop 06/19/21 at 20:25; Status DC Sevoflurane (Ultane) 90 ml STK-MED ONCE IH ; Start 06/19/21 at 20:26; Stop 06/19/21 at 20:26; Status DC Oxycodone HCl (Roxicodone) 5 mg PRN Q3HRS PRN PO MODERATE PAIN 4-6, 2ND CHOICE Last administered on 06/22/21at 20:21; Start 06/19/21 at 20:45 Fentanyl Citrate (Fentanyl 2ml Vial) 25 mcg PRN Q1HR PRN IVP SEVERE PAIN 7-10; Start 06/19/21 at 20:45 Senna/Docusate Sodium (Senna Plus) 1 tab DAILY PO Last administered on 06/23/21at 12:04; Start 06/20/21 at 09:00 Polyethylene Glycol (miraLAX PACKET) 17 gm PRN DAILY PRN PO CONSTIPATION Last administered on 06/23/21at 12:03; Start 06/19/21 at 20:45; Stop 06/23/21 at 14:15; Status DC Ondansetron HCl (Zofran) 4 mg PRN Q4HRS PRN IVP NAUSEA/VOMITING Last administered on 06/20/21at 06:17; Start 06/19/21 at 20:45 Enoxaparin Sodium (Lovenox 40mg Syringe) 40 mg DAILY SQ Last administered on 06/21/21at 09:00; Start 06/21/21 at 09:00 Magnesium Hydroxide (Milk Of Magnesia) 2,400 mg 1X PRN PRN PO CONSTIPATION; Start 06/20/21 at 06:00; Stop 06/21/21 at 05:59; Status DC Bisacodyl (Dulcolax Supp) 10 mg 1X PRN PRN CA CONSTIPATION; Start 06/20/21 at 16:00; Stop 06/21/21 at 15:59; Status DC Acetaminophen/ Hydrocodone Bitart (Lortab 7.5/325) 1 tab PRN Q4HRS PRN PO MODERATE PAIN- 1ST CHOICE; Start 06/19/21 at 20:45 Morphine Sulfate (Morphine Sulfate) 4 mg PRN Q2HR PRN IVP SEVERE PAIN 7-10 Last administered on 06/20/21at 16:34; Start 06/19/21 at 20:45 Dextrose (Dextrose 50%-Water Syringe) 12.5 gm PRN Q15MIN PRN IV SEE COMMENTS; Start 06/19/21 at 20:45 Cefazolin Sodium/ Dextrose 50 ml @ 100 mls/hr Q6H IV Last administered on 06/20/21at 12:50; Start 06/20/21 at 00:00; Stop 06/20/21 at 12:29; Status DC Fentanyl Citrate (Fentanyl 2ml Vial) 25 mcg PRN Q5MIN PRN IVP MILD PAIN 1-3; Start 06/19/21 at 21:15; Stop 06/20/21 at 03:00; Status DC Fentanyl Citrate (Fentanyl 2ml Vial) 50 mcg PRN Q5MIN PRN IVP MODERATE PAIN 4-6 Last administered on 06/19/21at 21:27; Start 06/19/21 at 21:15; Stop 06/20/21 at 03:00; Status DC Morphine Sulfate (Morphine Sulfate) 1 mg PRN Q10MIN PRN IVP SEVERE PAIN 7-10; Start 06/19/21 at 21:15; Stop 06/20/21 at 03:00; Status DC Ringer's Solution 1,000 ml @ 30 mls/hr Q24H IV ; Start 06/19/21 at 21:15; Stop 06/20/21 at 03:00; Status DC Hydromorphone HCl (Dilaudid) 0.5 mg PRN Q10MIN PRN IVP SEVERE PAIN 7-10, 2nd CHOICE Last administered on 06/19/21at 22:33; Start 06/19/21 at 21:15; Stop at 03:00; Status DC Fentanyl Citrate (Fentanyl 2ml Vial) 100 mcg STK-MED ONCE .ROUTE ; Start 06/19/21 at 21:14; Stop 06/19/21 at 21:14; Status DC Hydromorphone HCl (Dilaudid) 2 mg STK-MED ONCE .ROUTE ; Start 06/19/21 at 21:42; Stop 06/19/21 at 21:43; Status DC Acetaminophen/ Hydrocodone Bitart (Lortab 10/325) 1 tab PRN Q6HRS PRN PO SEVERE PAIN - 1ST CHOICE Last administered on 06/22/21at 01:38; Start 06/20/21 at 10:00 Polyethylene Glycol (miraLAX PACKET) 17 gm DAILY PO ; Start 06/23/21 at 15:00 Bisacodyl (Dulcolax Tab) 10 mg PRN DAILY PRN PO CONSTIPATION; Start 06/23/21 at 14:15 Active Scripts Active Reported Levothyroxine Sodium 50 Mcg Tablet 50 Mcg PO DAILYAC Aspirin Ec (Aspirin) 81 Mg Tablet. 81 Mg PO DAILY Zoloft (Sertraline Hcl) 100 Mg Tablet 250 Mg PO DAILY Seroquel (Quetiapine Fumarate) 300 Mg Tablet 150 Mg PO HS Vitamin D3 (Vitamin D) 25 Mcg Tablet 25 Mcg PO DAILY 1,000 UNITS = 25 MCG Thera Tears (Carboxymethylcellulose Sodium) 15 Ml Drops 1 Drop EACHEYE QID Omeprazole 20 Mg Capsule. 20 Mg PO DAILY Naproxen 500 Mg Tablet 500 Mg PO BID 30 Days Capsaicin 42.5 Gm Cream..g. 1 Enrrique TP TID Proair Hfa Inhaler (Albuterol Sulfate) 8.5 Gm Hfa.aer.ad 1 Puff IH PRN Q4-6HRS PRN 21 Days Ativan (Lorazepam) 1 Mg Tablet 1 Mg PO BID Vital Signs Vital Signs Date Time Temp Pulse Resp B/P (MAP) Pulse Ox O2 Delivery O2 Flow Rate FiO2 06/23/21 13:03 96 Room Air 5.0 06/23/21 11:00 98.0 85 18 122/62 (82) 98.0 Labs Laboratory Tests Test 06/22/21 07:05 06/23/21 10:00 Hemoglobin 7.2 g/dL (13.0-17.5) 7.3 g/dL (13.0-17.5) Hematocrit 20.9 % (39.0-53.0) 21.1 % (39.0-53.0) Mean Corpuscular Hemoglobin Concent 34 g/dL (31-37) 35 g/dL (31-37) White Blood Count 2.6 x10^3/uL (4.0-11.0) Red Blood Count 2.25 x10^6/uL (4.30-5.70) Mean Corpuscular Volume 94 fL (79-100) Mean Corpuscular Hemoglobin 32 pg (25-35) Red Cell Distribution Width 15.8 % (11.5-14.5) Platelet Count 86 x10^3/uL (140-400) Neutrophils (%) (Auto) 54 % (31-73) Lymphocytes (%) (Auto) 31 % (24-48) Monocytes (%) (Auto) 11 % (0-9) Eosinophils (%) (Auto) 3 % (0-3) Basophils (%) (Auto) 0 % (0-3) Neutrophils # (Auto) 1.4 x10^3/uL (1.8-7.7) Lymphocytes # (Auto) 0.8 x10^3/uL (1.0-4.8) Monocytes # (Auto) 0.3 x10^3/uL (0.0-1.1) Eosinophils # (Auto) 0.1 x10^3/uL (0.0-0.7) Basophils # (Auto) 0.0 x10^3/uL (0.0-0.2) Laboratory Tests Test 06/23/21 10:00 White Blood Count 2.6 x10^3/uL (4.0-11.0) Red Blood Count 2.25 x10^6/uL (4.30-5.70) Hemoglobin 7.3 g/dL (13.0-17.5) Hematocrit 21.1 % (39.0-53.0) Mean Corpuscular Volume 94 fL (79-100) Mean Corpuscular Hemoglobin 32 pg (25-35) Mean Corpuscular Hemoglobin Concent 35 g/dL (31-37) Red Cell Distribution Width 15.8 % (11.5-14.5) Platelet Count 86 x10^3/uL (140-400) Neutrophils (%) (Auto) 54 % (31-73) Lymphocytes (%) (Auto) 31 % (24-48) Monocytes (%) (Auto) 11 % (0-9) Eosinophils (%) (Auto) 3 % (0-3) Basophils (%) (Auto) 0 % (0-3) Neutrophils # (Auto) 1.4 x10^3/uL (1.8-7.7) Lymphocytes # (Auto) 0.8 x10^3/uL (1.0-4.8) Monocytes # (Auto) 0.3 x10^3/uL (0.0-1.1) Eosinophils # (Auto) 0.1 x10^3/uL (0.0-0.7) Basophils # (Auto) 0.0 x10^3/uL (0.0-0.2) Allergies Allergies Coded Allergies Type Severity Reaction Last Updated Verified No Known Drug Allergies 06/18/21 No Disposition/Orders: D/C to Home w/ HH Justicifation of Admission Dx: Justifications for Admission: Justification of Admission Dx: Yes BAL CRISOSTOMO MD Jun 23, 2021 14:43
[2021-06-23] MEDS ORDERED: BISA5TAB4 PO (14:47)
[2021-06-23] MEDS ORDERED: HYDR-2769 PO (14:47)
[2021-06-23] MEDS ORDERED: THIA100T22 PO (14:47)
[2021-06-23] MEDS ORDERED: Folic Acid PO (14:47)
[2021-06-23] MEDS ORDERED: POLY17PO52 PO (14:47)
--- NOTE | 2021-06-23 14:49 | SNU/HH DC ---
DISCHARGE WITH HOME HEALTH DISCHARGE INFORMATION: Discharge Date: Jun 23, 2021 Final Diagnosis: Problems Medical Problems: (1) Closed left femoral fracture Status: Acute Condition on Discharge: Guarded CODE STATUS: Code Status: Full HOME HEALTH: Face to Face: I certify this patient is under my care and that I, or a nurse practitioner or physician's environmental engineering assistant working with me, had a face to face encounter that meets the physician face to face encounter requirements with this patient on []. Medical Complications: DJD, Falls, Other (HIP FRACTURE) Prison For: Assess Cardiopulm Status, Assess & Educate Safety, Assess /Skilled Observatio RN For Eval/Treatment: Yes Occupational Therapy For: Evaluation/Treatment Speech Language Pathology For: Evaluation/Treatment Home Health Aide For: Self-care AUTOMOTIVE PARTS COUNTER ASSOCIATE For: Community Resources Pt Meets Homebound Status: Unsteady balance w/ amb,, Fatigue w/ amb., Frequent falls w/ injury, Limited distance walking POST DISCHARGE ORDERS: Activity Instructions for Disc: Activity as tolerated DIET AFTER DISCHARGE: Cardiac Wound/Incision Care: Reinforce dressing PRN Other wound/incision instructi: SEE ORTHO IN ONE WEEK CHECKS AFTER DISCHARGE: Checks after discharge: Check blood press - daily FOLLOW-UP: PCP to follow Home Health: SEE ORTHO ONE WEEK, PCP IN 7-14 DAYS, NO ALCOHOL TREATMENT/EQUIPMENT ORDERS: Adaptive Equipment Issued: Front wheeled walker CERTIFICATION STATEMENT: Certification Statement: Certification Statement: Based on the above finding, I certify that this patient is confined to the home and needs intermittent custodial care, physical therapy and/or speech therapy, or continues to need occupational therapy.~ This patient is under my care, and I have initiated the establishment of the plan of care.~ This patient will be followed by myself or a community physician who will periodically review the plan of care. Home Meds Active Scripts Thiamine Mononitrate (VITAMIN B-1) 100 Mg Tablet, 100 MG PO DAILY for SUPPLEMENT for 30 Days, #30 TAB Prov:BAL CRISOSTOMO MD 06/23/21 [Folic Acid] 1 MG TABLET No Conflict Check, 1 MG PO DAILY for SUPPLEMENT for 30 Days, #30 Prov:BAL CRISOSTOMO MD 06/23/21 Polyethylene Glycol 3350 (POLYETHYLENE GLYCOL 3350) 17 Gm Powd.pack, 17 GM PO DAILY for PREVENT CONSTIPATION for 30 Days, #30 PKT Prov:BAL CRISOSTOMO MD 06/23/21 Bisacodyl (BISACODYL) 5 Mg Tablet., 10 MG PO PRN DAILY PRN for CONSTIPATION for 14 Days, #30 TAB.SR Prov:BAL CRISOSTOMO MD 06/23/21 Hydrocodone Bit/Acetaminophen (HYDROCODONE-APAP 10325 ) 1 Tab Tablet, 1 TAB PO PRN Q6HRS PRN for SEVERE PAIN - 1ST CHOICE for 10 Days, #30 TAB Prov:BAL CRISOSTOMO MD 06/23/21 Reported Medications Levothyroxine Sodium (LEVOTHYROXINE SODIUM) 50 Mcg Tablet, 50 MCG PO DAILYAC for THYROID SUPPLEMENT, #30 TAB 0 Refills 06/19/21 Aspirin (ASPIRIN EC) 81 Mg Tablet.dr, 81 MG PO DAILY for , TAB.SR 06/19/21 Sertraline Hcl (ZOLOFT) 100 Mg Tablet, 250 MG PO DAILY for ANTI-DEPRESSANT, TAB 0 Refills 06/19/21 Quetiapine Fumarate (SEROQUEL) 300 Mg Tablet, 150 MG PO HS for SLEEP, TAB 06/19/21 Cholecalciferol (Vitamin D3) (Vitamin D3 ) 25 Mcg Tablet, 25 MCG PO DAILY for SUPPLEMENT, TAB 1,000 UNITS = 25 MCG 06/19/21 Carboxymethylcellulose Sodium (THERA TEARS) 15 Ml Drops, 1 DROP EACHEYE QID for , #30 ML 0 Refills 06/19/21 Omeprazole (OMEPRAZOLE) 20 Mg Capsule.dr, 20 MG PO DAILY for , CAP 06/19/21 Naproxen (NAPROXEN) 500 Mg Tablet, 500 MG PO BID for pain for 30 Days, #60 TAB 0 Refills 06/19/21 Capsaicin (CAPSAICIN) 42.5 Gm Cream..g., 1 VALORIE TP TID for PAIN, GM 0 Refills 06/19/21 Albuterol Sulfate (PROAIR HFA INHALER) 8.5 Gm Hfa.aer.ad, 1 PUFF IH PRN Q4-6HRS PRN for wheezing for 21 Days, #1 INHALER 0 Refills 06/19/21 Lorazepam (ATIVAN) 1 Mg Tablet, 1 MG PO BID for ANXIETY, TAB 06/19/21 BAL CRISOSTOMO MD Jun 23, 2021 14:49
[2021-06-23 15:00] VITALS: BP 116/47
[2021-06-23] MEDS: POLYETHYLENE GLYCOL 3350 17 GM PACKET. PO SCH (15:00)
[2021-06-23 19:43] VITALS: BP 108/53
[2021-06-23] MEDS: QUEtiapine 100 MG TABLET. PO SCH (21:13)
[2021-06-23 23:49] VITALS: BP 113/65
[2021-06-24 02:36] VITALS: BP 132/63
[2021-06-24] MEDS: LEVOTHYROXINE 50 MCG TABLET PO SCH (06:02)
[2021-06-24 07:00] VITALS: BP 126/63
--- NOTE | 2021-06-24 08:55 | PDOC ---
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 Basically, he presented with a fall. x r c/w left femur fracture, has associated pain rated at 9/10, worse with moving, better with sitting still. I discussed the case with ER physician. admitting the patient. 06/21/21 POD#2 Patient seen and examined in bed DWRN Chart reviewed 06/22/31 POD#3 Patient seen and examined in bed CDI dressing on L thigh Hemoglobin stable DWRN Chart reviewed 06/23/31 lwer left calf swelling neg homans No evidence of left lower extremity DVT. POD#4 hgb 7.3, chk occult blood in stool , GI consult Patient seen and examined in bed CDI dressing on L thigh Hemoglobin stable DWRN Chart reviewed Vitals Vitals Vital Signs Date Time Temp Pulse Resp B/P (MAP) Pulse Ox O2 Delivery O2 Flow Rate FiO2 06/24/21 07:00 97.8 74 18 126/63 (84) 98 Room Air 97.8 06/23/21 13:03 5.0 Physical Exam General: Alert, Oriented X3, Cooperative, mild distress Heart: No murmurs Lungs: Clear Abdomen: Normal bowel sounds Extremities: No clubbing, No cyanosis Skin: No rashes, Other (CDI dressing on L thigh) Labs LABS Laboratory Tests Test 06/23/21 10:00 06/23/21 16:15 White Blood Count 2.6 x10^3/uL (4.0-11.0) Red Blood Count 2.25 x10^6/uL (4.30-5.70) Hemoglobin 7.3 g/dL (13.0-17.5) Hematocrit 21.1 % (39.0-53.0) Mean Corpuscular Volume 94 fL (79-100) Mean Corpuscular Hemoglobin 32 pg (25-35) Mean Corpuscular Hemoglobin Concent 35 g/dL (31-37) Red Cell Distribution Width 15.8 % (11.5-14.5) Platelet Count 86 x10^3/uL (140-400) Neutrophils (%) (Auto) 54 % (31-73) Lymphocytes (%) (Auto) 31 % (24-48) Monocytes (%) (Auto) 11 % (0-9) Eosinophils (%) (Auto) 3 % (0-3) Basophils (%) (Auto) 0 % (0-3) Neutrophils # (Auto) 1.4 x10^3/uL (1.8-7.7) Lymphocytes # (Auto) 0.8 x10^3/uL (1.0-4.8) Monocytes # (Auto) 0.3 x10^3/uL (0.0-1.1) Eosinophils # (Auto) 0.1 x10^3/uL (0.0-0.7) Basophils # (Auto) 0.0 x10^3/uL (0.0-0.2) Iron Level 37 ug/dL (65-175) Total Iron Binding Capacity 162 ug/dL (250-450) Iron Saturation 23 % (15-34) Vitamin B12 Level 424 pg/mL (247-911) Assessment and Plan Assessmemt and Plan Problems Medical Problems: (1) Closed left femoral fracture Status: Acute Comment Review of Relevant I have reviewed the following items michael (where applicable) has been applied. Labs Laboratory Tests Test 06/23/21 10:00 06/23/21 16:15 White Blood Count 2.6 x10^3/uL (4.0-11.0) Red Blood Count 2.25 x10^6/uL (4.30-5.70) Hemoglobin 7.3 g/dL (13.0-17.5) Hematocrit 21.1 % (39.0-53.0) Mean Corpuscular Volume 94 fL (79-100) Mean Corpuscular Hemoglobin 32 pg (25-35) Mean Corpuscular Hemoglobin Concent 35 g/dL (31-37) Red Cell Distribution Width 15.8 % (11.5-14.5) Platelet Count 86 x10^3/uL (140-400) Neutrophils (%) (Auto) 54 % (31-73) Lymphocytes (%) (Auto) 31 % (24-48) Monocytes (%) (Auto) 11 % (0-9) Eosinophils (%) (Auto) 3 % (0-3) Basophils (%) (Auto) 0 % (0-3) Neutrophils # (Auto) 1.4 x10^3/uL (1.8-7.7) Lymphocytes # (Auto) 0.8 x10^3/uL (1.0-4.8) Monocytes # (Auto) 0.3 x10^3/uL (0.0-1.1) Eosinophils # (Auto) 0.1 x10^3/uL (0.0-0.7) Basophils # (Auto) 0.0 x10^3/uL (0.0-0.2) Iron Level 37 ug/dL (65-175) Total Iron Binding Capacity 162 ug/dL (250-450) Iron Saturation 23 % (15-34) Vitamin B12 Level 424 pg/mL (247-911) Laboratory Tests Test 06/23/21 10:00 06/23/21 16:15 White Blood Count 2.6 x10^3/uL (4.0-11.0) Red Blood Count 2.25 x10^6/uL (4.30-5.70) Hemoglobin 7.3 g/dL (13.0-17.5) Hematocrit 21.1 % (39.0-53.0) Mean Corpuscular Volume 94 fL (79-100) Mean Corpuscular Hemoglobin 32 pg (25-35) Mean Corpuscular Hemoglobin Concent 35 g/dL (31-37) Red Cell Distribution Width 15.8 % (11.5-14.5) Platelet Count 86 x10^3/uL (140-400) Neutrophils (%) (Auto) 54 % (31-73) Lymphocytes (%) (Auto) 31 % (24-48) Monocytes (%) (Auto) 11 % (0-9) Eosinophils (%) (Auto) 3 % (0-3) Basophils (%) (Auto) 0 % (0-3) Neutrophils # (Auto) 1.4 x10^3/uL (1.8-7.7) Lymphocytes # (Auto) 0.8 x10^3/uL (1.0-4.8) Monocytes # (Auto) 0.3 x10^3/uL (0.0-1.1) Eosinophils # (Auto) 0.1 x10^3/uL (0.0-0.7) Basophils # (Auto) 0.0 x10^3/uL (0.0-0.2) Iron Level 37 ug/dL (65-175) Total Iron Binding Capacity 162 ug/dL (250-450) Iron Saturation 23 % (15-34) Vitamin B12 Level 424 pg/mL (247-911) Medications Current Medications Sodium Chloride 1,000 ml @ 1,000 mls/hr 1X ONCE IV Last administered on 06/18/21at 21:30; Start 06/18/21 at 22:30; Stop 06/18/21 at 23:29; Status DC Fentanyl Citrate (Fentanyl 2ml Vial) 75 mcg 1X ONCE IVP Last administered on 06/18/21at 23:46; Start 06/18/21 at 22:30; Stop 06/18/21 at 22:31; Status DC Ondansetron HCl (Zofran) 4 mg PRN Q8HRS PRN IV NAUSEA/VOMITING 1ST CHOICE Last administered on 06/19/21at 00:51; Start 06/18/21 at 23:00; Stop 06/19/21 at 21:00; Status DC Morphine Sulfate (Morphine Sulfate) 4 mg PRN Q2HR PRN IV SEVERE PAIN 7-10 Last administered on 06/19/21at 17:07; Start 06/18/21 at 23:00; Stop 06/19/21 at 21:03; Status DC Sodium Chloride 1,000 ml @ 75 mls/hr [id number] IV Last administered on 06/19/21at 22:49; Start 06/18/21 at 23:30; Stop 06/19/21 at 23:29; Status DC Acetaminophen (Tylenol) 650 mg PRN Q4HRS PRN PO FEVER > 100.3'F; Start 06/18/21 at 23:00; Stop 06/19/21 at 22:59; Status DC Fentanyl Citrate (Fentanyl 2ml Vial) 25 mcg PRN Q5MIN PRN IVP MILD PAIN 1-3; Start 06/19/21 at 10:15; Stop 06/19/21 at 19:00; Status DC Fentanyl Citrate (Fentanyl 2ml Vial) 50 mcg PRN Q5MIN PRN IVP MODERATE PAIN 4- 6; Start 06/19/21 at 10:15; Stop 06/19/21 at 19:00; Status DC Morphine Sulfate (Morphine Sulfate) 1 mg PRN Q10MIN PRN IVP SEVERE PAIN 7-10; Start 06/19/21 at 10:15; Stop 06/19/21 at 19:00; Status DC Ringer's Solution 1,000 ml @ 30 mls/hr Q24H IV ; Start 06/19/21 at 10:15; Stop 06/19/21 at 22:14; Status DC Hydromorphone HCl (Dilaudid) 0.5 mg PRN Q10MIN PRN IVP SEVERE PAIN 7-10, 2nd CHOICE; Start 06/19/21 at 10:15; Stop 06/19/21 at 19:00; Status DC Prochlorperazine Edisylate (Compazine) 5 mg PACU PRN PRN IVP NAUSEA, MRX1; Start 06/19/21 at 10:15; Stop 06/19/21 at 19:00; Status DC Aspirin (Ecotrin) 81 mg DAILY PO Last administered on 06/23/21at 12:06; Start 06/20/21 at 09:00 Vitamin D (Vitamin D3) 1,000 unit DAILY PO Last administered on 06/23/21at 12:04; Start 06/20/21 at 09:00 Levothyroxine Sodium (Synthroid) 50 mcg DAILY06 PO Last administered on 06/24/21at 06:02; Start 06/20/21 at 06:00 Lorazepam (Ativan) 1 mg BID PO Last administered on 06/23/21at 21:12; Start 06/19/21 at 21:00 Naproxen (Naprosyn) 500 mg BID PO Last administered on 06/23/21at 21:13; Start 06/19/21 at 21:00 Capsaicin (Zostrix) 1 enrrique TID TP ; Start 06/19/21 at 14:00 Glycerin/ Hypromellose/ Polyethylene (Artificial Tears) 1 drop QID OU Last administered on 06/23/21at 12:03; Start 06/19/21 at 13:00 Pantoprazole Sodium (Protonix) 40 mg DAILYAC PO Last administered on 06/23/21at 06:05; Start 06/20/21 at 07:30 Quetiapine Fumarate (SEROquel) 150 mg HS PO Last administered on 06/23/21at 21:13; Start 06/19/21 at 21:00 Sertraline HCl (Zoloft) 200 mg DAILY PO Last administered on 06/23/21at 12:04; Start 06/20/21 at 09:00 Albuterol Sulfate (Ventolin Neb Soln) 2.5 mg PRN QID PRN NEB WHEEZING; Start 06/19/21 at 11:45 Oxycodone/ Acetaminophen (Percocet 7.5/ 325) 1 tab PRN Q4HRS PRN PO SEVERE PAIN, 2ND CHOICE Last administered on 06/23/21at 12:04; Start 06/19/21 at 12:15 Lorazepam (Ativan) 1 mg 1X ONCE PO Last administered on 06/19/21at 12:28; Start 06/19/21 at 12:30; Stop 06/19/21 at 12:31; Status DC Thiamine Mononitrate (Vitamin B-1) 100 mg DAILY PO Last administered on at 12:04; Start 06/20/21 at 09:00 Folic Acid (Folic Acid) 1 mg DAILY PO Last administered on 06/23/21at 12:05; Start 06/20/21 at 09:00 Propofol (Diprivan) 200 mg STK-MED ONCE IV ; Start 06/19/21 at 15:16; Stop 06/19/21 at 15:17; Status DC Lidocaine HCl (Lidocaine Pf 2% Vial) 5 ml STK-MED ONCE .ROUTE ; Start 06/19/21 at 15:17; Stop 06/19/21 at 15:17; Status DC Dexamethasone Sodium Phosphate (Decadron) 4 mg STK-MED ONCE .ROUTE ; Start 06/19/21 at 15:17; Stop 06/19/21 at 15:17; Status DC Ondansetron HCl (Zofran) 4 mg STK-MED ONCE .ROUTE ; Start 06/19/21 at 15:17; Stop 06/19/21 at 15:17; Status DC Phenylephrine HCl (PHENYLEPHRINE in 0.9% NACL PF) 1 mg STK-MED ONCE IV ; Start 06/19/21 at 15:17; Stop 06/19/21 at 15:17; Status DC Rocuronium [place] (Zemuron) 50 mg STK-MED ONCE .ROUTE ; Start 06/19/21 at 15:17; Stop 06/19/21 at 15:17; Status DC Bupivacaine HCl/ Epinephrine Bitart (Sensorcaine-Epi 0.25%-1:[id number] Mpf) 30 ml STK-MED ONCE .ROUTE ; Start 06/19/21 at 17:44; Stop 06/19/21 at 17:44; Status DC Fentanyl Citrate (Fentanyl 2ml Vial) 100 mcg STK-MED ONCE .ROUTE ; Start 06/19/21 at 18:19; Stop 06/19/21 at 18:19; Status DC Cefazolin Sodium/ Dextrose 50 ml @ As Directed STK-MED ONCE IV ; Start 06/19/21 at 18:21; Stop 06/19/21 at 18:21; Status DC Ketamine HCl (Ketamine) 50 mg STK-MED ONCE .ROUTE ; Start 06/19/21 at 18:44; Stop 06/19/21 at 18:45; Status DC Tranexamic Acid 50 ml @ As Directed STK-MED ONCE .ROUTE ; Start 06/19/21 at 19:02; Stop 06/19/21 at 19:03; Status DC Albumin Human 0 ml @ As Directed STK-MED ONCE IV ; Start 06/19/21 at 19:50; Stop 06/19/21 at 19:50; Status DC Albumin Human 500 ml @ As Directed STK-MED ONCE IV ; Start 06/19/21 at 19:56; Stop 06/19/21 at 19:56; Status DC Albumin Human 500 ml @ As Directed STK-MED ONCE IV ; Start 06/19/21 at 19:57; Stop 06/19/21 at 19:57; Status DC Ephedrine Sulfate (ePHEDrine PF IN SALINE SYRINGE) 50 mg STK-MED ONCE IV ; Sta rt 06/19/21 at 20:25; Stop 06/19/21 at 20:25; Status DC Sevoflurane (Ultane) 90 ml STK-MED ONCE IH ; Start 06/19/21 at 20:26; Stop 06/19/21 at 20:26; Status DC Oxycodone HCl (Roxicodone) 5 mg PRN Q3HRS PRN PO MODERATE PAIN 4-6, 2ND CHOICE Last administered on 06/22/21at 20:21; Start 06/19/21 at 20:45 Fentanyl Citrate (Fentanyl 2ml Vial) 25 mcg PRN Q1HR PRN IVP SEVERE PAIN 7-10 (1st choice); Start 06/19/21 at 20:45 Senna/Docusate Sodium (Senna Plus) 1 tab DAILY PO Last administered on 06/23/21at 12:04; Start 06/20/21 at 09:00 Polyethylene Glycol (miraLAX PACKET) 17 gm PRN DAILY PRN PO CONSTIPATION Last administered on 06/23/21at 12:03; Start 06/19/21 at 20:45; Stop 06/23/21 at 14:15; Status DC Ondansetron HCl (Zofran) 4 mg PRN Q4HRS PRN IVP NAUSEA/VOMITING Last administered on 06/20/21at 06:17; Start 06/19/21 at 20:45 Enoxaparin Sodium (Lovenox 40mg Syringe) 40 mg DAILY SQ Last administered on 06/21/21at 09:00; Start 06/21/21 at 09:00 Magnesium Hydroxide (Milk Of Magnesia) 2,400 mg 1X PRN PRN PO CONSTIPATION; Start 06/20/21 at 06:00; Stop 06/21/21 at 05:59; Status DC Bisacodyl (Dulcolax Supp) 10 mg 1X PRN PRN [place] CONSTIPATION; Start 06/20/21 at 16:00; Stop 06/21/21 at 15:59; Status DC Acetaminophen/ Hydrocodone Bitart (Lortab 7.5/325) 1 tab PRN Q4HRS PRN PO MODERATE PAIN- 1ST CHOICE; Start 06/19/21 at 20:45 Morphine Sulfate (Morphine Sulfate) 4 mg PRN Q2HR PRN IVP SEVERE PAIN 7-10 (2nd Choice) Last administered on 06/20/21at 16:34; Start 06/19/21 at 20:45 Dextrose (Dextrose 50%-Water Syringe) 12.5 gm PRN Q15MIN PRN IV SEE COMMENTS; Start 06/19/21 at 20:45 Cefazolin Sodium/ Dextrose 50 ml @ 100 mls/hr Q6H IV Last administered on 05/24 at 12:50; Start 06/20/21 at 00:00; Stop 06/20/21 at 12:29; Status DC Fentanyl Citrate (Fentanyl 2ml Vial) 25 mcg PRN Q5MIN PRN IVP MILD PAIN 1-3; Start 06/19/21 at 21:15; Stop 06/20/21 at 03:00; Status DC Fentanyl Citrate (Fentanyl 2ml Vial) 50 mcg PRN Q5MIN PRN IVP MODERATE PAIN 4-6 Last administered on 06/19/21at 21:27; Start 06/19/21 at 21:15; Stop 06/20/21 at 03:00; Status DC Morphine Sulfate (Morphine Sulfate) 1 mg PRN Q10MIN PRN IVP SEVERE PAIN 7-10; Start 06/19/21 at 21:15; Stop 06/20/21 at 03:00; Status DC Ringer's Solution 1,000 ml @ 30 mls/hr Q24H IV ; Start 06/19/21 at 21:15; Stop 06/20/21 at 03:00; Status DC Hydromorphone HCl (Dilaudid) 0.5 mg PRN Q10MIN PRN IVP SEVERE PAIN 7-10, 2nd CHOICE Last administered on 06/19/21at 22:33; Start 06/19/21 at 21:15; Stop 06/20/21 at 03:00; Status DC Fentanyl Citrate (Fentanyl 2ml Vial) 100 mcg STK-MED ONCE .ROUTE ; Start 06/19/21 at 21:14; Stop 06/19/21 at 21:14; Status DC Hydromorphone HCl (Dilaudid) 2 mg STK-MED ONCE .ROUTE ; Start 06/19/21 at 21:42; Stop 06/19/21 at 21:43; Status DC Acetaminophen/ Hydrocodone Bitart (Lortab 10/325) 1 tab PRN Q6HRS PRN PO SEVERE PAIN - 1ST CHOICE Last administered on 06/22/21at 01:38; Start 06/20/21 at 10:00 Polyethylene Glycol (miraLAX PACKET) 17 gm DAILY PO ; Start 06/23/21 at 15:00 Bisacodyl (Dulcolax Tab) 10 mg PRN DAILY PRN PO CONSTIPATION; Start 06/23/21 at 14:15 Active Scripts Active Vitamin B-1 (Thiamine Mononitrate) 100 Mg Tablet 100 Mg PO DAILY 30 Days [Folic Acid] 1 MG Tablet 1 Mg PO DAILY 30 Days Polyethylene Glycol 3350 17 Gm Powd.pack 17 Gm PO DAILY 30 Days Bisacodyl 5 Mg Tablet.dr 10 Mg PO PRN DAILY PRN 14 Days Hydrocodone-Apap 10-325 (Hydrocodone Bit/Acetaminophen) 1 Tab Tablet 1 Tab PO PRN Q6HRS PRN 10 Days Reported Levothyroxine Sodium 50 Mcg Tablet 50 Mcg PO DAILYAC Aspirin Ec (Aspirin) 81 Mg Tablet. 81 Mg PO DAILY Zoloft (Sertraline Hcl) 100 Mg Tablet 250 Mg PO DAILY Seroquel (Quetiapine Fumarate) 300 Mg Tablet 150 Mg PO HS Vitamin D3 (Vitamin D) 25 Mcg Tablet 25 Mcg PO DAILY 1,000 UNITS = 25 MCG Thera Tears (Carboxymethylcellulose Sodium) 15 Ml Drops 1 Drop EACHEYE QID Omeprazole 20 Mg Capsule.dr 20 Mg PO DAILY Naproxen 500 Mg Tablet 500 Mg PO BID 30 Days Capsaicin 42.5 Gm Cream..g. 1 Enrrique TP TID Proair Hfa Inhaler (Albuterol Sulfate) 8.5 Gm Hfa.aer.ad 1 Puff IH PRN Q4-6HRS PRN 21 Days Ativan (Lorazepam) 1 Mg Tablet 1 Mg PO BID Vitals/I & O Vital Sign - Last 24 Hours 06/23/21 06/23/21 06/23/21 06/23/21 11:00 12:04 13:03 15:00 Temp 98.0 98.2 98.0 98.2 Pulse 85 84 Resp 18 18 B/P (MAP) 122/62 (82) 116/47 (70) Pulse Ox 96 96 96 91 O2 Delivery Room Air Room Air Room Air Room Air O2 Flow Rate 5.0 5.0 06/23/21 06/23/21 06/23/21 06/24/21 19:43 20:05 23:49 02:36 Temp 97.9 97.9 97.9 97.9 97.9 97.9 Pulse 85 83 78 Resp 16 20 18 B/P (MAP) 108/53 (71) 113/65 (81) 132/63 (86) Pulse Ox 99 98 98 O2 Delivery Room Air Room Air Room Air Room Air 06/24/21 07:00 Temp 97.8 97.8 Pulse 74 Resp 18 B/P (MAP) 126/63 (84) Pulse Ox 98 O2 Delivery Room Air Intake and Output 06/23/21 06/23/21 06/24/21 15:00 23:00 07:00 Intake Total 370 ml 180 ml 180 ml Output Total 100 ml 550 ml Balance 370 ml 80 ml -370 ml Justicifation of Admission Dx: Justifications for Admission: Justification of Admission Dx: Yes BAL CRISOSTOMO MD Jun 24, 2021 08:55
[2021-06-24] MEDS: PANTOPRAZOLE 40 MG TABLET.DR. PO SCH (08:56)
[2021-06-24] MEDS: THIAMINE 100 MG TABLET. PO SCH (08:56)
[2021-06-24] MEDS: NAPROXEN 500 MG TABLET PO SCH (08:56)
[2021-06-24] MEDS: POLYETHYLENE GLYCOL 3350 17 GM PACKET. PO SCH (08:56)
[2021-06-24] MEDS: CHOLECALCIFEROL (VITAMIN D3) 1,000 UNIT TABLET PO SCH (08:56)
[2021-06-24] MEDS: FOLIC ACID 1 MG TABLET. PO SCH (08:57)
[2021-06-24] MEDS: SENNOSIDES/DOCUSATE 8.6/50MG TABLET. PO SCH (08:57)
[2021-06-24] MEDS: SERTRALINE 50 MG TABLET. PO SCH (08:57)
[2021-06-24] MEDS: ASPIRIN ENTERIC COATED 81 MG TABLET.DR. PO SCH (08:57)
[2021-06-24] MEDS: ENOXAPARIN 40 MG/0.4 ML SYRINGE. SQ SCH (08:58)
[2021-06-24] MEDS: POLYVINYL ALCOHOL 1.4% OPHTH SOLUTION 15ML BOTTLE. OU SCH ×2 (08:58→13:00)
[2021-06-24] MEDS: CAPSAICIN 0.025% TOPICAL CREAM 60GM TUBE. TP SCH ×2 (08:58→13:34)
--- NOTE | 2021-06-24 10:31 | PDOC ---
Date of Service: DATE: 06/24/21 TIME: 10:22 Objective: Objective: Reviewed chart - awaiting discharge plans. Vital Signs: Vital Signs Date Time Temp Pulse Resp B/P (MAP) Pulse Ox O2 Delivery O2 Flow Rate FiO2 06/24/21 07:00 97.8 74 18 126/63 (84) 98 Room Air 97.8 06/23/21 13:03 5.0 Labs: Laboratory Tests Test 06/23/21 16:15 Iron Level 37 ug/dL Total Iron Binding Capacity 162 ug/dL Iron Saturation 23 % Vitamin B12 Level 424 pg/mL PE: GEN: NAD ABD: non-distended NEURO/PSYCH: sleeping - not awakened A/P: S/p left femur ORIF Mostly post-op anemia - stable (checked yesterday) - iron profile (after transfusion) c/w ACD GERD, constipation, alcohol overuse -- No reported GI issues/bleeding. [facility] Continue PPI. May need more aggressive constipation treatment if he's willing, particularly w/ ongoing opioid use after fracture/surgery. Consider Relistor, etc. Justicifation of Admission Dx: Justifications for Admission: Justification of Admission Dx: Yes BARON KAPOOR Jun 24, 2021 10:31
[2021-06-24 11:00] VITALS: BP 151/73
[2021-06-24] MEDS ORDERED: HYDR-2765 PO (12:28)
[2021-06-24 15:00] VITALS: BP 135/61
--- NOTE | 2021-06-24 16:24 | NUR ---
SW following. Discussed with RN, pt accepted with [facility] - PCP name provided to [facility]. Transportation arranged via [facility] for 1899. RN notified. Pt is a high risk readmission. No further SW needs.
[2021-06-24] MEDS: oxyCODONE/APAP 7.5/325 1 TAB TABLET PO PRN (18:48)
--- NOTE | 2021-06-24 19:32 | NUR ---
Discharge Note: YAMILET CAO [address] [place] [address] Discharge instructions and discharge home medications reviewed with Patient and a copy given. All questions have been answered and understanding verbalized. The following instructions and handouts were given: Diet, activity, medication list and follow up instructions provided to patient. Discontinued lines and drains: Peripheral IV discontinued and catheter intact. NOBLE drain intact. Patient discharged to Home w/services with Ambulance Personnel via [facility]
== END 2021-06-24 19:00 | disposition home health service (06) | DRG 481 ==
LOC: ER 21:09 → 2 NORTH 22:52 → MERGE 22:52 → 4 NORTH 06-19 23:01
PROVIDERS: ADMIT Internal Medicine; ATTEND Internal Medicine
PROC: 30233N1 Transfusion of Nonautologous Red Blood Cells into Peripheral Vein, Percutaneous Approach (ICD-10-PCS; 2021-06-18)
PROC: 0QS704Z Reposition Left Upper Femur with Internal Fixation Device, Open Approach (ICD-10-PCS; principal; 2021-06-19 18:30)
DX: S72.302A Unspecified fracture of shaft of left femur, initial encounter for closed fracture (principal); M97.02XA Periprosthetic fracture around internal prosthetic left hip joint, initial encounter; E44.0 Moderate protein-calorie malnutrition; E87.2 Acidosis; S72.402A Unspecified fracture of lower end of left femur, initial encounter for closed fracture; D69.6 Thrombocytopenia, unspecified; E03.9 Hypothyroidism, unspecified; E66.9 Obesity, unspecified; E78.5 Hyperlipidemia, unspecified; F17.210 Nicotine dependence, cigarettes, uncomplicated; F41.9 Anxiety disorder, unspecified; I10 Essential (primary) hypertension; J44.9 Chronic obstructive pulmonary disease, unspecified; K21.9 Gastro-esophageal reflux disease without esophagitis; K59.00 Constipation, unspecified; M81.0 Age-related osteoporosis without current pathological fracture; W18.30XA Fall on same level, unspecified, initial encounter; Y92.009 Unspecified place in unspecified non-institutional (private) residence as the place of occurrence of the external cause; Z80.7 Family history of other malignant neoplasms of lymphoid, hematopoietic and related tissues; Z96.643 Presence of artificial hip joint, bilateral; F32.9 Major depressive disorder, single episode, unspecified; G89.29 Other chronic pain; M19.90 Unspecified osteoarthritis, unspecified site; Z88.8 Allergy status to other drugs, medicaments and biological substances; Z68.30 Body mass index [BMI] 30.0-30.9, adult; W18.39XA Other fall on same level, initial encounter; Y93.89 Activity, other specified; Y99.8 Other external cause status; D64.9 Anemia, unspecified
CPT/HCPCS: 36415; 36430; 71045; 73502; 73552; 76000; 80053; 82607; 83540; 83550; 83605; 83735; 83874; 83880; 84100; 84484; 85014; 85018; 85025; 86850; 86900; 86901; 86920; 93005; 93971; 96361; 96374; 99406; A4930; A6253; C1713; G0480; J0690; J1100; J1170; J1650; J2270; J2370; J2405; J2704; J3010; J3490; J7030; P9016; P9045; U0003; U0005; 97110-GP; 97530-GO; 97530-GP; 97535-GO; 99285-25; G0378